=== PATIENT | male | born 1955 | race Caucasian/White ===

== ENCOUNTER 2017-07-19 14:27 | Emergency (ER) | payer OTHER ==
--- NOTE | 2017-07-19 14:31 | PDOC ---
Rapid Medical Evaluation Time Seen by Provider: 07/19/17 14:28 Medical Evaluation: Allergies Allergy/AdvReac Type Severity Reaction Status Date / Time No Known Allergies Allergy Verified 07/19/17 14:28 07/19/17 14:29 Pt presents to the ED: inability to urinate x 2 hrs, no blood , had a procedure by urologist, dr Marina ram 1 month. Had catheter placed before for the same Pt on brief exam: c/o suprapubic pressure, vss Pt ordered for: ua, ucx, cbc, comp, #14 sharpe cath placed in triage Pt to proceed to the Emergency Dept Discharge Disposition - Diagnosis Inability to urinate - Referrals - Patient Instructions - Post Discharge Activity
[2017-07-19 14:32] VITALS: BP 159/91; PULSE 81; TEMP 98.6; BMI 31.3
[2017-07-19 15:33] LABS: BASO # 0.1 # (0.1-1); BASO % 1.1 % (0-2.0); EOS # 0.3 # (0-4.5); EOS % 4.6 % (0-4.5); LYMPH # 1.5 (8-40); MCH 26.7 pg (25.7-33.7); MCHC 32.8 g/dl (32.0-35.9); MEAN CELL VOLUME 81.4 fl (80-96); MEAN PLT VOLUME 9.4 fl (7.5-11.1); MONO # 0.5 # (3.8-10.2); NEUT # 3.2 # (42.8-82.8); NEUT % 58.1 % (42.8-82.8); PLATELET COUNT 248 K/MM3 (134-434); RDW 13.9 % (11.9-15.9); WHITE BLOOD COUNT 5.5 K/mm3 (4.0-10.0)
[2017-07-19 15:37] LABS: URINE APPEARANCE SLCLOUDY; URINE BILIRUBIN NEGATIVE (NEGATIVE); URINE BLOOD 3+ (NEGATIVE); URINE COLOR LTYELLOW; URINE GLUCOSE (UA) NEGATIVE (NEGATIVE); URINE KETONE NEGATIVE (NEGATIVE); URINE NITRITE NEGATIVE (NEGATIVE); URINE PROTEIN NEGATIVE (NEGATIVE); URINE UROBILINOGEN NEGATIVE mg/dL (0.2-1.0)
[2017-07-19 15:44] LABS: URINE LEUK ESTERASE 3+ (NEGATIVE)
[2017-07-19 15:55] LABS: ALBUMIN 3.7 g/dl (3.4-5.0); ALK PHOS 52 U/L (45-117); ANION GAP 11 (8-16); BILIRUBIN,TOTAL 0.2 mg/dL (0.2-1.0); CALCIUM 9.2 mg/dL (8.5-10.1); CO2 24 mmol/L (21-32); CREATININE 1.2 mg/dL (0.7-1.3); GLUCOSE,RANDOM 87 mg/dL (74-106); SGOT/AST 32 U/L (15-37); SGPT/ALT 48 U/L (12-78); TOT PROT 7.1 g/dl (6.4-8.2)
[2017-07-19 16:00] LABS: URINE BACTERIA RARE /hpf (NONE SEEN); URINE MUCUS RARE; URINE RBC 42 /hpf (0-3); URINE WBC 127 /hpf (3-5)
--- NOTE | 2017-07-19 16:33 | PDOC ---
History of Present Illness - General History Source: Patient Exam Limitations: No Limitations - History of Present Illness Initial Comments: 07/19/17 16:50 The patient is a 62 year old male with a significant PMH of HTN and HLD who presents to the emergency department with inability to urinate since 12PM today. The patient states he had a procedure done for an enlarged prostate and urinary frequency by Dr. Rojas 1 month ago. The patient had no urinary complaints until today when he was unable to urinate since 12PM today. The patient reported suprapubic pain in triage secondary to his urinary retention that has since resolved after shapre catheter placement. The patient denies hematuria. The patient denies headache, dizziness, fever, chills, nausea, and vomit. Allergies: NKA Past surgical history: None reported. Social history: No reported alcohol, drug, or cigarette use. PCP: Dr. Falcon <Radha Lovell - Last Filed: 07/19/17 16:50> <Karina Puente - Last Filed: 07/20/17 16:30> - General Chief Complaint: Urinary Problem Stated Complaint: retention / URINARY PROBLEM Time Seen by Provider: 07/19/17 14:28 Past History <Radha Lovell - Last Filed: 07/19/17 16:50> - Past Medical History COPD: No HTN: Yes Hypercholesterolemia: Yes Kidney Stones: Yes - Surgical History Orthopedic Surgery: Yes (r knee) - Immunization History Immunization Up to Date: Yes - Suicide/Smoking/Psychosocial Hx Smoking Status: Yes Smoking History: Never smoked Have you smoked in the past 12 months: No Number of Cigarettes Smoked Daily: 0 If you are a former smoker, when did you quit?: 20 yrs ago Information on smoking cessation initiated: No Hx Alcohol Use: No Drug/Substance Use Hx: No Substance Use Type: None Hx Substance Use Treatment: No <Karina Puente - Last Filed: 07/20/17 16:30> - Past Medical History Allergies/Adverse Reactions: Allergies Allergy/AdvReac Type Severity Reaction Status Date / Time No Known Allergies Allergy Verified 07/19/17 14:28 Home Medications: Ambulatory Orders Lisinopril [Prinivil] 20 mg PO DAILY 03/25/13 Simvastatin [Zocor -] 40 mg PO HS 03/25/13 Atenolol [Tenormin -] 50 mg PO ASDIR 04/11/16 Fenofibrate [Fenoglide] 134 mg PO DAILY 11/03/15 Aspirin [ASA -] 81 mg PO DAILY 07/19/17 Cephalexin Monohydrate [Keflex -] 500 mg PO BID #14 capsule 07/19/17 Levofloxacin [Levaquin] 500 mg PO DAILY 07/19/17 Nortriptyline HCl [Pamelor -] 50 mg PO HS PRN 07/19/17 Pantoprazole Sodium [Protonix] 40 mg PO DAILY 07/19/17 Potassium Chloride [Klor-Con M15] 15 meq PO DAILY 07/19/17 Review of Systems - Review of Systems Able to Perform ROS?: Yes Comments:: 07/19/17 16:53 GENERAL/CONSTITUTIONAL: No fever or chills. No weakness. HEAD, EYES, EARS, NOSE AND THROAT: No change in vision. No ear pain or discharge. No sore throat. CARDIOVASCULAR: No chest pain or shortness of breath. RESPIRATORY: No cough, wheezing, or hemoptysis. GASTROINTESTINAL: No nausea, vomiting, diarrhea or constipation. GENITOURINARY: (+) Urinary retention. (+) Suprapubic pain. MUSCULOSKELETAL: No joint or muscle swelling or pain. No neck or back pain. SKIN: No rash NEUROLOGIC: No headache, vertigo, loss of consciousness, or change in strength/ sensation. ENDOCRINE: No increased thirst. No abnormal weight change. HEMATOLOGIC/LYMPHATIC: No anemia, easy bleeding, or history of blood clots. ALLERGIC/IMMUNOLOGIC: No hives or skin allergy. <Radha Lovell - Last Filed: 07/19/17 16:50> *Physical Exam - Vital Signs Last Vital Signs Temp Pulse Resp BP Pulse Ox 98.6 F 81 18 159/91 100 07/19/17 14:29 07/19/17 14:29 07/19/17 14:29 07/19/17 14:29 07/19/17 14:29 <Radha Lovell - Last Filed: 07/19/17 16:50> - Vital Signs Last Vital Signs Temp Pulse Resp BP Pulse Ox 98.6 F 81 18 159/91 100 07/19/17 14:29 07/19/17 14:29 07/19/17 14:29 07/19/17 14:29 07/19/17 14:29 - Physical Exam Comments: GENERAL: Awake, alert, and fully oriented, in no acute distress HEAD: No signs of trauma EYES: PERRLA, EOMI, sclera anicteric, conjunctiva clear ENT: Auricles normal inspection, hearing grossly normal, nares patent, oropharynx clear without exudates. Moist mucosa NECK: Normal ROM, supple, no lymphadenopathy, JVD, or masses LUNGS: Breath sounds equal, clear to auscultation bilaterally. No wheezes, and no crackles HEART: Regular rate and rhythm, normal S1 and S2, no murmurs, rubs or gallops ABDOMEN: Soft, nontender, normoactive bowel sounds. No guarding, no rebound. No masses EXTREMITIES: Normal range of motion, no edema. No clubbing or cyanosis. No cords, erythema, or tenderness NEUROLOGICAL: Cranial nerves II through XII grossly intact. Normal speech, normal gait SKIN: Warm, Dry, normal turgor, no rashes or lesions noted. : Sharpe in place (placed in triage), draining clear straw-colored urine. <Karina Puente - Last Filed: 07/20/17 16:30> ED Treatment Course - LABORATORY CBC & Chemistry Diagram: 07/19/17 15:15 07/19/17 15:15 - ADDITIONAL ORDERS Additional order review: Laboratory Results 07/19/17 07/19/17 15:15 15:15 Sodium 141 Potassium 4.1 Chloride 106 Carbon Dioxide 24 Anion Gap 11 BUN 28 H D Creatinine 1.2 Creat Clearance w eGFR > 60 Random Glucose 87 D Calcium 9.2 Total Bilirubin 0.2 D AST 32 ALT 48 Alkaline Phosphatase 52 D Total Protein 7.1 Albumin 3.7 Urine Color Ltyellow Urine Appearance Slcloudy Urine pH 6.0 D Ur Specific [place] 1.008 Urine Protein Negative Urine Glucose (UA) Negative Urine Ketones Negative Urine Blood 3+ H Urine Nitrite Negative Urine Bilirubin Negative Urine Urobilinogen Negative Urine WBC (Auto) 127 Urine RBC (Auto) 42 Urine Bacteria Rare Urine Mucus Rare 07/19/17 15:15 RBC 4.98 MCV 81.4 MCHC 32.8 RDW 13.9 MPV 9.4 Neutrophils % 58.1 Lymphocytes % 27.2 Monocytes % 9.0 Eosinophils % 4.6 H Basophils % 1.1 <Radha Lovell - Last Filed: 07/19/17 16:50> - LABORATORY CBC & Chemistry Diagram: 07/19/17 15:15 07/19/17 15:15 - ADDITIONAL ORDERS Additional order review: Laboratory Results 07/19/17 07/19/17 15:15 15:15 Sodium 141 Potassium 4.1 Chloride 106 Carbon Dioxide 24 Anion Gap 11 BUN 28 H D Creatinine 1.2 Creat Clearance w eGFR > 60 Random Glucose 87 D Calcium 9.2 Total Bilirubin 0.2 D AST 32 ALT 48 Alkaline Phosphatase 52 D Total Protein 7.1 Albumin 3.7 Urine Color Ltyellow Urine Appearance Slcloudy Urine pH 6.0 D Ur Specific [place] 1.008 Urine Protein Negative Urine Glucose (UA) Negative Urine Ketones Negative Urine Blood 3+ H Urine Nitrite Negative Urine Bilirubin Negative Urine Urobilinogen Negative Urine WBC (Auto) 127 Urine RBC (Auto) 42 Urine Bacteria Rare Urine Mucus Rare 07/19/17 15:15 RBC 4.98 MCV 81.4 MCHC 32.8 RDW 13.9 MPV 9.4 Neutrophils % 58.1 Lymphocytes % 27.2 Monocytes % 9.0 Eosinophils % 4.6 H Basophils % 1.1 <Karina Puente - Last Filed: 07/20/17 16:30> Medical Decision Making - Medical Decision Making 07/19/17 19:[address] Vallejo. Initially presented with urinary retention, relieved by sharpe placement in triage. However, subsequent to this, he later complained of L testicular pain. Testicle with normal lie, no erythema, no induration, no skin changes. Ultrasound pending. Will DC home pending ultrasound findings. Pt initially written for abx based on urinalysis, but it was cancelled after he stated he was on levaquin at home. <Karina Puente - Last Filed: 07/20/17 16:30> *DC/Admit/Observation/Transfer <Radha Lovell - Last Filed: 07/19/17 16:50> - Discharge Dispostion Admit: No <Karina Puente - Last Filed: 07/20/17 16:30> Diagnosis at time of Disposition: Inability to urinate, Urinary retention - Discharge Dispostion Disposition: HOME Condition at time of disposition: Stable - Prescriptions Prescriptions: Cephalexin Monohydrate [Keflex -] 500 mg PO BID #14 capsule - Referrals Referrals: Rush Rojas MD [Staff Physician] - - Patient Instructions Printed Discharge Instructions: DI for Varicocele, DI for Urinary Retention in Men - Post Discharge Activity
[2017-07-19 18:27] LABS: URINE LEUK ESTERASE 2+ (NEGATIVE)
[2017-07-19] MEDS ORDERED: CEPHALEXIN MONOHYDRATE 500 MG CAPSULE (UD) PO ONE (19:08)
--- NOTE | 2017-07-19 19:36 | PDOC ---
*Physical Exam - Vital Signs Last Vital Signs Temp Pulse Resp BP Pulse Ox 98.6 F 81 18 159/91 100 07/19/17 14:29 07/19/17 14:29 07/19/17 14:29 07/19/17 14:29 07/19/17 14:29 ED Treatment Course - LABORATORY CBC & Chemistry Diagram: 07/19/17 15:15 07/19/17 15:15 - ADDITIONAL ORDERS Additional order review: Laboratory Results 07/19/17 07/19/17 15:15 15:15 Sodium 141 Potassium 4.1 Chloride 106 Carbon Dioxide 24 Anion Gap 11 BUN 28 H D Creatinine 1.2 Creat Clearance w eGFR > 60 Random Glucose 87 D Calcium 9.2 Total Bilirubin 0.2 D AST 32 ALT 48 Alkaline Phosphatase 52 D Total Protein 7.1 Albumin 3.7 Urine Color Ltyellow Urine Appearance Slcloudy Urine pH 6.0 D Ur Specific [place] 1.008 Urine Protein Negative Urine Glucose (UA) Negative Urine Ketones Negative Urine Blood 3+ H Urine Nitrite Negative Urine Bilirubin Negative Urine Urobilinogen Negative Ur Leukocyte Esterase 2+ H Urine WBC (Auto) 127 Urine RBC (Auto) 42 Urine Bacteria Rare Urine Mucus Rare 07/19/17 15:15 RBC 4.98 MCV 81.4 MCHC 32.8 RDW 13.9 MPV 9.4 Neutrophils % 58.1 Lymphocytes % 27.2 Monocytes % 9.0 Eosinophils % 4.6 H Basophils % 1.1 - Medications Given in the ED: ED Medications Discontinued Medications Generic Name Dose Route Start Last Admin Trade Name Alvinq PRN Reason Stop Dose Admin Cephalexin HCl 500 mg 07/19/17 19:08 07/19/17 19:22 Keflex - PO 07/19/17 19:09 Not Given ONCE ONE *DC/Admit/Observation/Transfer Diagnosis at time of Disposition: Inability to urinate, Urinary retention - Discharge Dispostion Disposition: HOME Condition at time of disposition: Stable Admit: No - Prescriptions Prescriptions: Cephalexin Monohydrate [Keflex -] 500 mg PO BID #14 capsule - Referrals Referrals: Rush Rojas MD [Staff Physician] - - Patient Instructions Printed Discharge Instructions: DI for Varicocele, DI for Urinary Retention in Men - Post Discharge Activity
== END 2017-07-19 19:41 | disposition home or self-care (01) ==
LOC: JER 14:27
PROC: 0T9B70Z Drainage of Bladder with Drainage Device, Via Natural or Artificial Opening (ICD-10-PCS; principal; 2017-07-19)
DX: N40.0 Benign prostatic hyperplasia without lower urinary tract symptoms (principal); R33.8 Other retention of urine; I10 Essential (primary) hypertension; E78.00 Pure hypercholesterolemia, unspecified
CPT/HCPCS: 36415; 76870-TC; 80053; 81003; 81015; 85025; 87086; 99281-25

== ENCOUNTER 2017-08-12 18:22 | Inpatient (IN) | payer OTHER ==
--- NOTE | 2017-08-12 20:08 | PDOC ---
History of Present Illness - History of Present Illness Initial Comments: 08/12/17 20:51 The patient is a 62 year old male with a significant PMH of HTN, HLD, kidney stones, urinary retention, enlarged prostate, sharpe catheter, who presents to the emergency department with inability to urinate since yesterday. Previous notes reports that patient had a procedure done recently for an enlarged prostate and urinary frequency by Dr. Rojas. Patient states that he went to [facility] yesterday because he was unable to urinate. Patient states that he went to Dr. Rojas's office and was given a shot of Toradol at 2pm. Patient also reports left CVA tenderness, lower left suprapubic pain. He reports a swollen left scrotum, and is currently profusely diaphoretic. The patient denies hematuria. The patient denies headache, dizziness, chills, nausea, and vomit. Allergies: NKA Past surgical history: None reported. Social history: No reported alcohol, drug, or cigarette use. PCP: Dr. Falcon <Amber Shaikh - Last Filed: 08/12/17 21:40> <Tracee Wyatt - Last Filed: 08/13/17 02:46> - General Chief Complaint: Pain, Acute Stated Complaint: PAIN Time Seen by Provider: 08/12/17 20:08 Past History <Amber Shaikh - Last Filed: 08/12/17 21:40> - Past Medical History COPD: No HTN: Yes Hypercholesterolemia: Yes Kidney Stones: Yes - Surgical History Orthopedic Surgery: Yes (r knee) - Immunization History Immunization Up to Date: Yes - Suicide/Smoking/Psychosocial Hx Smoking Status: Yes Smoking History: Never smoked Have you smoked in the past 12 months: No Number of Cigarettes Smoked Daily: 0 If you are a former smoker, when did you quit?: 20 yrs ago Information on smoking cessation initiated: No Hx Alcohol Use: No Drug/Substance Use Hx: No Substance Use Type: None Hx Substance Use Treatment: No <Tracee Wyatt - Last Filed: 08/13/17 02:46> - Past Medical History Allergies/Adverse Reactions: Allergies Allergy/AdvReac Type Severity Reaction Status Date / Time No Known Allergies Allergy Verified 08/12/17 19:01 Home Medications: Ambulatory Orders Lisinopril [Prinivil] 20 mg PO DAILY 03/25/13 Simvastatin [Zocor -] 40 mg PO HS 03/25/13 Atenolol [Tenormin -] 50 mg PO ASDIR 11/03/15 Fenofibrate [Fenoglide] 134 mg PO DAILY 11/03/15 Aspirin [ASA -] 81 mg PO DAILY 07/19/17 Nortriptyline HCl [Pamelor -] 50 mg PO HS PRN 07/19/17 Pantoprazole Sodium [Protonix] 40 mg PO DAILY 07/19/17 Potassium Chloride [Klor-Con M15] 15 meq PO DAILY 07/19/17 Meloxicam [Mobic (Nf) -] 0 mg PO ASDIR 08/12/17 Sulfamethoxazole/Trimethoprim [Bactrim Ds Tablet] 1 each PO BID 08/12/17 Review of Systems - Review of Systems Comments:: 08/12/17 20:59 GENERAL/CONSTITUTIONAL: +slight fever. No chills. No weakness. HEAD, EYES, EARS, NOSE AND THROAT: No change in vision. No ear pain or discharge. No sore throat. CARDIOVASCULAR: No chest pain or shortness of breath. RESPIRATORY: No cough, wheezing, or hemoptysis. GASTROINTESTINAL: No nausea, vomiting, diarrhea or constipation. GENITOURINARY: +urinary retention. MUSCULOSKELETAL: +left CVA tenderness. +left suprapubic pain. No neck pain. SKIN: No rash NEUROLOGIC: No headache, vertigo, loss of consciousness, or change in strength/ sensation. ENDOCRINE: No increased thirst. No abnormal weight change. HEMATOLOGIC/LYMPHATIC: No anemia, easy bleeding, or history of blood clots. ALLERGIC/IMMUNOLOGIC: No hives or skin allergy. <Amber Shaikh - Last Filed: 08/12/17 21:40> *Physical Exam - Vital Signs Last Vital Signs Temp Pulse Resp BP Pulse Ox 99.4 F 95 H 20 123/61 100 08/12/17 19:47 08/12/17 19:01 08/12/17 19:01 08/12/17 19:01 08/12/17 19:01 - Physical Exam Comments: 08/12/17 21:40 GENERAL: Awake, alert, and fully oriented. Profusely diaphoretic. HEAD: No signs of trauma EYES: PERRLA, EOMI, sclera anicteric, conjunctiva clear ENT: Auricles normal inspection, hearing grossly normal, nares patent, oropharynx clear without exudates. Moist mucosa NECK: Normal ROM, supple, no lymphadenopathy, JVD, or masses LUNGS: Breath sounds equal, clear to auscultation bilaterally. No wheezes, and no crackles HEART: Regular rate and rhythm, normal S1 and S2, no murmurs, rubs or gallops ABDOMEN: Soft,left lower abdominal pain. Left flank pain, pain upon percussion. No guarding, no rebound. No masses : Sharpe-catheter -> clean, dry. Swollen left testicle. EXTREMITIES: Normal range of motion, no edema. No clubbing or cyanosis. No cords, erythema, or tenderness NEUROLOGICAL: Cranial nerves II through XII grossly intact. Normal speech, normal gait SKIN: Warm, Dry, normal turgor, no rashes or lesions noted. <Amber Shaikh - Last Filed: 08/12/17 21:40> - Vital Signs Last Vital Signs Temp Pulse Resp BP Pulse Ox 99.4 F 95 H 20 123/61 100 08/12/17 19:47 08/12/17 19:01 08/12/17 19:01 08/12/17 19:01 08/12/17 19:01 <Tracee Wyatt - Last Filed: 08/13/17 02:46> ED Treatment Course - LABORATORY CBC & Chemistry Diagram: 08/12/17 21:00 08/12/17 21:00 <Amber Shaikh - Last Filed: 08/12/17 21:40> - LABORATORY CBC & Chemistry Diagram: 08/12/17 21:00 08/12/17 21:00 <Tracee Wyatt - Last Filed: 08/13/17 02:46> Medical Decision Making - Medical Decision Making 08/12/17 21:34 Pt comes with sweats fever; urinary cath in place. He has left flank pain and he has left testicle swelling. WBC is elevated. UA shows 3+ blood and 3+ leukocytes. Pt was sent for sono, and he will be sent for spiral CT to r/o kidney stone and he was given a prophylactic dose of zosyn and doxycycline. He had no antipyretics in the ER so we gave a dose of ofirmev. 08/12/17 23:[address] Tyler Falcon, who admits to Edgar Templeton, who admits to the hospitalist team. <Tracee Wyatt - Last Filed: 08/13/17 02:46> *DC/Admit/Observation/Transfer - Attestations Scribe Attestion: 08/12/17 21:41 Documentation prepared by Amber Shaikh, acting as medical claims specialist for Tracee Wyatt MD. <Amber Shaikh - Last Filed: 08/12/17 21:40> - Discharge Dispostion Admit: Yes <Tracee Wyatt - Last Filed: 08/13/17 02:46> Diagnosis at time of Disposition: Kidney stone, Inability to urinate, Pyelonephritis, History of hydrocele, Infected hydrocele - Discharge Dispostion Condition at time of disposition: Guarded - Referrals Referrals: Samantha Falcon MD [Primary Care Provider] -
[2017-08-12] MEDS ORDERED: ACETAMINOPHEN 1000 MG/100 ML VIAL (NON FORMULARY) IVPB ONE (20:42)
[2017-08-12] MEDS ORDERED: PIPERACILLIN/TAZOB 3.375 GM 50 ML IVPB ONE (20:42)
[2017-08-12] MEDS ORDERED: DOXYCYCLINE INJECTION 100 MG in DEXTROSE 5%-WATER - 150 ML IVPB ONE (20:44)
[2017-08-12] MEDS ORDERED: ACETAMINOPHEN INJECTION 100 ML IVPB ONE (20:57)
[2017-08-12] MEDS ORDERED: PIPERACILLIN/TAZOB 3.375 GM 3.375 GM/50 ML BAG IVPB ONE (20:57)
[2017-08-12 21:16] LABS: HEMATOCRIT 36.9 % (35.4-49); HEMOGLOBIN 12.4 GM/dL (11.7-16.9); MCH 26.9 pg (25.7-33.7); MCHC 33.5 g/dl (32.0-35.9); MEAN CELL VOLUME 80.5 fl (80-96); MEAN PLT VOLUME 9.1 fl (7.5-11.1); PLATELET COUNT 205 K/MM3 (134-434); RBC 4.59 M/mm3 (4.00-5.60); RDW 14.5 % (11.9-15.9); WHITE BLOOD COUNT 12.1 K/mm3 (4.0-10.0)
[2017-08-12] MEDS ORDERED: DOXYCYCLINE HYCLATE 100 MG VIAL ONE (21:25)
[2017-08-12 21:26] LABS: URINE APPEARANCE SLCLOUDY; URINE BILIRUBIN NEGATIVE (NEGATIVE); URINE BLOOD 3+ (NEGATIVE); URINE COLOR YELLOW; URINE GLUCOSE (UA) NEGATIVE (NEGATIVE); URINE KETONE NEGATIVE (NEGATIVE); URINE NITRITE NEGATIVE (NEGATIVE); URINE UROBILINOGEN NEGATIVE mg/dL (0.2-1.0)
[2017-08-12 21:27] LABS: URINE LEUK ESTERASE 3+ (NEGATIVE); URINE PROTEIN 2+ (NEGATIVE)
[2017-08-12 21:56] LABS: INR 1.19 (0.82-1.09); PROTHROMBIN TIME (PATIENT) 13.4 SEC (9.98-11.88)
[2017-08-12 21:57] LABS: ALBUMIN 3.6 g/dl (3.4-5.0); ANION GAP 11 (8-16); BLOOD UREA NITROGEN 27 mg/dL (7-18); CHLORIDE 99 mmol/L (98-107); CO2 22 mmol/L (21-32); CREATININE 1.4 mg/dL (0.7-1.3); GLUCOSE,RANDOM 92 mg/dL (74-106); POTASSIUM 4.1 mmol/L (3.5-5.1); SGOT/AST 34 U/L (15-37); SGPT/ALT 45 U/L (12-78); SODIUM 132 mmol/L (136-145)
[2017-08-12 21:58] LABS: ACTIVATED PTT 28.5 SECONDS (26.9-34.4)
[2017-08-12 21:59] LABS: ALK PHOS 40 U/L (45-117); BILIRUBIN,TOTAL 0.7 mg/dL (0.2-1.0); TOT PROT 6.7 g/dl (6.4-8.2)
[2017-08-12 22:06] LABS: PLATELET ESTIMATE ADEQUATE
[2017-08-12 22:30] LABS: URINE HYALINE CAST 2 /lpf; URINE MUCUS RARE
[2017-08-12] MEDS: SODIUM CHLORIDE 0.9% 1000 ML INFUS.BAG IV PRN (23:29)
--- NOTE | 2017-08-13 00:43 | HP ---
CHIEF COMPLAINT: Flank Pain, Chills PCP: Dr. Samantha Falcon HISTORY OF PRESENT ILLNESS: This is a 62 y/o male with a past medical history of HTN, HLD, Kidney Stones. Who presents to the ED with spouse for flank pain and chills. Per ED record, patient was seen at [facility] for Urinary Retention- placed Ohara Catheter w/leg bag. He reports following up with Dr. Rush Rojas in the office yesterday, and was given Toradol for pain. The patient reports having pain to his L-flank with chills and subjective fevers. Patient denies cough, SOB, CP, N/ V/D, constipation. ER course was notable for: (1) SIRS Criteria MET III- T Max 99.5~ 100.6, WBC 12.1, BUN 27 (2) CTAP- neg hydronephrosis, non-obstructing renal calculi, bilateral renal cortical scarring (3) US- small moderate left hydrocele Recent Travel: None PAST MEDICAL HISTORY: See HPI PAST SURGICAL HISTORY: Social History: Smoking: Never Alcohol: None Drugs: None Family History: Allergies No Known Allergies Allergy (Verified 08/12/17 19:01) HOME MEDICATIONS: Home Medications Medication Instructions Recorded Lisinopril [Prinivil] 20 mg PO DAILY 03/25/13 Simvastatin [Zocor -] 40 mg PO HS 03/25/13 Atenolol [Tenormin -] 50 mg PO ASDIR 11/03/15 Fenofibrate [Fenoglide] 134 mg PO DAILY 11/03/15 Aspirin [ASA -] 81 mg PO DAILY 07/19/17 Nortriptyline HCl [Pamelor -] 50 mg PO HS PRN 07/19/17 Pantoprazole Sodium [Protonix] 40 mg PO DAILY 07/19/17 Potassium Chloride [Klor-Con M15] 15 meq PO DAILY 07/19/17 Meloxicam [Mobic (Nf) -] 0 mg PO ASDIR 08/12/17 Sulfamethoxazole/Trimethoprim 1 each PO BID 08/12/17 [Bactrim Ds Tablet] REVIEW OF SYSTEMS CONSTITUTIONAL: chills, Absent: fever, diaphoresis, generalized weakness, malaise, loss of appetite, weight change HEENT: Absent: rhinorrhea, nasal congestion, throat pain, throat swelling, difficulty swallowing, mouth swelling, ear pain, eye pain, visual changes CARDIOVASCULAR: Absent: chest pain, syncope, palpitations, irregular heart rate, lightheadedness , peripheral edema RESPIRATORY: Absent: cough, shortness of breath, dyspnea with exertion, orthopnea, wheezing, stridor, hemoptysis GASTROINTESTINAL: abdominal pain, Absent: abdominal distension, nausea, vomiting, diarrhea, constipation, melena, hematochezia GENITOURINARY: flank pain, left scrotal swelling/tenderness Absent: dysuria, frequency, urgency, hesitancy, hematuria, genital pain MUSCULOSKELETAL: Absent: myalgia, arthralgia, joint swelling, back pain, neck pain SKIN: Absent: rash, itching, pallor HEMATOLOGIC/IMMUNOLOGIC: Absent: easy bleeding, easy bruising, lymphadenopathy, frequent infections ENDOCRINE: Absent: unexplained weight gain, unexplained weight loss, heat intolerance, cold intolerance NEUROLOGIC: Absent: headache, focal weakness or paresthesias, dizziness, unsteady gait, seizure, mental status changes, bladder or bowel incontinence PSYCHIATRIC: Absent: anxiety, depression, suicidal or homicidal ideation, hallucinations. PHYSICAL EXAMINATION Vital Signs - 24 hr 08/12/17 08/12/17 08/12/17 19:01 19:47 22:20 Temperature 99.5 F 99.4 F 100.6 F H Pulse Rate 95 H Pulse Rate [ 83 Apical] Respiratory 20 16 Rate Blood Pressure 123/61 Blood Pressure 96/61 [Right Arm] O2 Sat by Pulse 100 96 Oximetry (%) 08/12/17 23:01 Temperature 98.7 F Pulse Rate Pulse Rate [ 83 Apical] Respiratory 18 Rate Blood Pressure Blood Pressure 97/53 [Right Arm] O2 Sat by Pulse 99 Oximetry (%) GENERAL: Awake, alert, and fully oriented, in no acute distress. HEAD: Normal with no signs of trauma. EYES: Pupils equal, round and reactive to light, extraocular movements intact, sclera anicteric, conjunctiva clear. No lid lag. EARS, NOSE, THROAT: Ears normal, nares patent, oropharynx clear without exudates. Dry mucous membranes. NECK: Normal range of motion, supple without lymphadenopathy, JVD, or masses. LUNGS: Breath sounds equal, clear to auscultation bilaterally. No wheezes, and no crackles. No accessory muscle use. HEART: Regular rate and rhythm, normal S1 and S2 without murmur, rub or gallop. ABDOMEN: Soft, LMQ/LLQ tenderness, not distended, normoactive bowel sounds, no guarding, no rebound, no masses. No hepatomegaly or splenomegaly. GENITOURINARY: Left scrotum grossly edematous, pain/tenderness to palpation MUSCULOSKELETAL: Normal range of motion at all joints. No bony deformities or tenderness. L-CVA tenderness. UPPER EXTREMITIES: 2+ pulses, warm, well-perfused. No cyanosis. No clubbing. No peripheral edema. LOWER EXTREMITIES: 2+ pulses, warm, well-perfused. No calf tenderness. No peripheral edema. NEUROLOGICAL: Cranial nerves II-XII intact. Normal speech. Gait not observed. PSYCHIATRIC: Cooperative. Good eye contact. Appropriate mood and affect. SKIN: Warm, dry, normal turgor, no rashes or lesions noted, normal capillary refill. Laboratory Results - last 24 hr 08/12/17 08/12/17 08/12/17 21:00 21:00 21:00 WBC 12.1 H D RBC 4.59 Hgb 12.4 Hct 36.9 MCV 80.5 MCH 26.9 MCHC 33.5 RDW 14.5 Plt Count 205 MPV 9.1 Total Counted 100 Neutrophils % No Result Required. Neutrophils % (Manual) 83.0 H Band Neutrophils % 2.0 Lymphocytes % No Result Required. Lymphocytes % (Manual) 9.0 Monocytes % (Manual) 4 Eosinophils % (Manual) 1.0 Basophils % (Manual) 1.0 Platelet Estimate Adequate PT with INR INR PTT (Actin FS) Sodium 132 L Potassium 4.1 Chloride 99 Carbon Dioxide 22 Anion Gap 11 BUN 27 H Creatinine 1.4 H Creat Clearance w eGFR 51.69 Random Glucose 92 Lactic Acid 1.2 Calcium 8.0 L Total Bilirubin 0.7 D AST 34 ALT 45 Alkaline Phosphatase 40 L D Total Protein 6.7 Albumin 3.6 Urine Color Urine Appearance Urine pH Ur Specific [place] Urine Protein Urine Glucose (UA) Urine Ketones Urine Blood Urine Nitrite Urine Bilirubin Urine Urobilinogen Ur Leukocyte Esterase Urine WBC (Auto) Urine RBC (Auto) Hyaline Casts Urine Mucus Blood Type Antibody Screen 08/12/17 08/12/17 08/12/17 21:05 21:06 21:06 WBC RBC Hgb Hct MCV MCH MCHC RDW Plt Count MPV Total Counted Neutrophils % Neutrophils % (Manual) Band Neutrophils % Lymphocytes % Lymphocytes % (Manual) Monocytes % (Manual) Eosinophils % (Manual) Basophils % (Manual) Platelet Estimate PT with INR 13.40 H INR 1.19 H PTT (Actin FS) 28.5 Sodium Potassium Chloride Carbon Dioxide Anion Gap BUN Creatinine Creat Clearance w eGFR Random Glucose Lactic Acid Calcium Total Bilirubin AST ALT Alkaline Phosphatase Total Protein Albumin Urine Color Yellow Urine Appearance Slcloudy Urine pH 6.0 Ur Specific [place] 1.015 Urine Protein 2+ H Urine Glucose (UA) Negative Urine Ketones Negative Urine Blood 3+ H Urine Nitrite Negative Urine Bilirubin Negative Urine Urobilinogen Negative Ur Leukocyte Esterase 3+ H Urine WBC (Auto) 57 Urine RBC (Auto) 270 Hyaline Casts 2 Urine Mucus Rare Blood Type O POSITIVE Antibody Screen Negative ASSESSMENT/PLAN: This is a 62 y/o man with a PMHx of: HTN, HLD, Renal Calculi. Admitted for Pyelonephritis, Epididymitis. Plan: 1. Pyelonephritis- IVF, Blood Cultures-pending, Continue Zosyn. Appreciate ID Consult. Appreciate Nephrology Consult. Monitor CBC, Monitor vitals, CTAP- reviewed 2. Epididymitis- US-reviewed, Blood cultures, Urine culture-pending, UA- reviewed, Continue Doxycycline, Appreciate ID Consult, supportive care, Monitor BMP, CBC, Monitor vitals 3. Urinary Retention- Ohara Care, maintain INOs 4. Hypertension- Currently hypotensive, will hold meds, 2/2 ALEYDA, NS Bolus prn, maintain MAP > 65 5. Hyperlipidemia- Continue Zocor, monitor LFTs 6. F/E/N- NS@42cc/hr, Replete lytes prn, NPO 7. DVT Prophylaxis- OOB, SCDs, Heparin SQ Code Status: Full Code Dispo: Full Code Problem List - Problem (1) Inability to urinate Code(s): R33.9 - RETENTION OF URINE, UNSPECIFIED (2) Pyelonephritis Code(s): N12 - TUBULO-INTERSTITIAL NEPHRITIS, NOT SPCF ACUTE OR CHRONIC (3) Kidney stone Code(s): N20.0 - CALCULUS OF KIDNEY (4) Infected hydrocele Code(s): N43.1 - INFECTED HYDROCELE (5) HTN (hypertension) Code(s): I10 - ESSENTIAL (PRIMARY) HYPERTENSION (6) HLD (hyperlipidemia) Code(s): E78.5 - HYPERLIPIDEMIA, UNSPECIFIED (7) DVT prophylaxis Code(s): HSY1524 - Visit type - Emergency Visit Emergency Visit: Yes ED Registration Date: 08/12/17 Care time: The patient presented to the Emergency Department on the above date and was hospitalized for further evaluation of their emergent condition. - New Patient This patient is new to me today: Yes Date on this admission: 08/13/17 - Critical Care Critical Care patient: No
[2017-08-13] MEDS ORDERED: SODIUM CHLORIDE 0.9% 500 ML INFUS.BAG IV ONE (00:53)
[2017-08-13] MEDS ORDERED: morphine CARPU-JECT 2 MG/1 ML DISP.SYRIN IVPUSH ONE (03:11)
[2017-08-13] MEDS ORDERED: KETOROLAC TROMETHAMINE 30 MG/1 ML VIAL IVPUSH ONE (03:22)
[2017-08-13] MEDS ORDERED: KETOROLAC TROMETHAMINE 30 MG/1 ML VIAL ONE (03:29)
[2017-08-13] MEDS: SODIUM CHLORIDE 0.9% 1000 ML INFUS.BAG IV PRN ×2 (03:36→05:40)
[2017-08-13] MEDS ORDERED: PIPERACILLIN/TAZOB 3.375 GM 3.375 GM in DEXTROSE 5%-WATER - 100 ML IVPB ONE (05:00)
[2017-08-13 05:51] VITALS: BMI 31.6
[2017-08-13 09:02] LABS: BASO % 0.4 % (0-2.0); EOS % 0.8 % (0-4.5); HEMATOCRIT 31.4 % (35.4-49); HEMOGLOBIN 10.1 GM/dL (11.7-16.9); LYMPH % 9.6 % (8-40); MCH 26.2 pg (25.7-33.7); MCHC 32.2 g/dl (32.0-35.9); MEAN CELL VOLUME 81.4 fl (80-96); MEAN PLT VOLUME 9.3 fl (7.5-11.1); NEUT % 79.2 % (42.8-82.8); PLATELET COUNT 178 K/MM3 (134-434); RBC 3.87 M/mm3 (4.00-5.60); RDW 14.8 % (11.9-15.9); WHITE BLOOD COUNT 14.1 K/mm3 (4.0-10.0)
[2017-08-13] MEDS ORDERED: KETOROLAC TROMETHAMINE 30 MG/1 ML VIAL IVPUSH PRN (09:09)
[2017-08-13] MEDS ORDERED: PT OWN MED DRAWER 7, Y5N ONE (09:47)
[2017-08-13 09:56] LABS: ANION GAP 10 (8-16); BLOOD UREA NITROGEN 25 mg/dL (7-18); CALCIUM 7.4 mg/dL (8.5-10.1); CHLORIDE 106 mmol/L (98-107); CO2 23 mmol/L (21-32); CREATININE 1.2 mg/dL (0.7-1.3); GLUCOSE,RANDOM 87 mg/dL (74-106); POTASSIUM 3.8 mmol/L (3.5-5.1); SODIUM 139 mmol/L (136-145)
[2017-08-13] MEDS ORDERED: DOXYCYCLINE INJECTION 100 MG in DEXTROSE 5%-WATER - 100 ML IVPB SCH (10:00)
[2017-08-13] MEDS: PANTOPRAZOLE 40 MG TABLET (FP) PO SCH (10:03)
--- NOTE | 2017-08-13 10:29 | PN ---
Progress Note (short form) - Note Progress Note: pt seen earlier today by hospitalist chart reviewed pt of Dr. Falcon comfortable at bedside continue abx urology to follow will assume care will follow
--- NOTE | 2017-08-13 16:44 | CON.ID ---
Consult Consult Specialty:: infectious disease Referred by:: lydia Reason for Consultation:: fever - History of Present Illness Chief Complaint: left testicular pain History of Present Illness: developed acute urinary retention on night seen at [facility], sharpe placed, went to [place], Tuesday developed testicular pain on left went to urology given meds- ?pain meds, ?abx, felt better, went home, pain worsened came to ED +chills/fever sharpe changed in ED prior history of kidney stones, no history of UTI c/o pain radiating to left flank no vomiting - History Source History Provided By: Patient, Medical Record Limitations to Obtaining History: No Limitations - Past Medical History Cardio/Vascular: Yes: HTN, Hyperlipdemia Renal/: Yes: Renal Calculi - Past Surgical History Additional Surgical History: knee arthroscopy. prostate surgery 05/26 - Alcohol/Substance Use Hx Alcohol Use: No - Smoking History Smoking history: Never smoked Have you smoked in the past 12 months: No Aproximately how many cigarettes per day: 0 If you are a former smoker, when did you quit?: 20 yrs ago - Social History Usual Living Arrangement: With Spouse ADL: Independent Occupation: works in [employer] of : Other ([employer] [facility] [employer]) Came to [place]year[place] age 28 Home Medications - Allergies Allergies/Adverse Reactions: Allergies Allergy/AdvReac Type Severity Reaction Status Date / Time No Known Allergies Allergy Verified 08/12/17 19:01 - Home Medications Home Medications: Ambulatory Orders Lisinopril [Prinivil] 20 mg PO DAILY 03/25/13 Simvastatin [Zocor -] 40 mg PO HS 03/25/13 Atenolol [Tenormin -] 50 mg PO ASDIR 11/03/15 Fenofibrate [Fenoglide] 134 mg PO DAILY 11/03/15 Aspirin [ASA -] 81 mg PO DAILY 07/19/17 Nortriptyline HCl [Pamelor -] 50 mg PO HS PRN 07/19/17 Pantoprazole Sodium [Protonix] 40 mg PO DAILY 07/19/17 Potassium Chloride [Klor-Con M15] 15 meq PO DAILY 07/19/17 Meloxicam [Mobic (Nf) -] 0 mg PO ASDIR 08/12/17 Sulfamethoxazole/Trimethoprim [Bactrim Ds Tablet] 1 each PO BID 08/12/17 Family Disease History - Family Disease History Family History: Unremarkable Review of Systems - Review of Systems Constitutional: reports: Chills, Fever. denies: Loss of Appetite Eyes: reports: No Symptoms HENT: reports: No Symptoms Neck: reports: No Symptoms Cardiovascular: denies: Chest Pain Respiratory: denies: Cough Genitourinary: reports: Flank Pain, Testicular Pain, Testicular Swelling Physical Exam Vital Signs: Vital Signs Temperature 97.8 F 08/13/17 14:41 Pulse Rate 76 08/13/17 14:41 Respiratory Rate 18 08/13/17 14:41 Blood Pressure 99/54 08/13/17 14:41 O2 Sat by Pulse Oximetry (%) 99 08/13/17 09:00 Constitutional: Yes: Well Nourished, No Distress, Calm Eyes: Yes: Conjunctiva Clear, EOM Intact HENT: Yes: Atraumatic, Normocephalic Neck: Yes: Supple, Trachea Midline Cardiovascular: Yes: Regular Rate and Rhythm Respiratory: Yes: Regular, CTA Bilaterally Gastrointestinal: Yes: Normal Bowel Sounds, Soft ...Rectal Exam: Yes: Deferred Renal/: Yes: CVA Tenderness - Left, Other (left testicular swelling) Extremities: Yes: WNL Edema: No Psychiatric: Yes: Alert Labs: CBC, BMP 08/13/17 06:00 08/13/17 08:00 UA 57 wbc Imaging - Results Chest X-ray: Report Reviewed Ultrasound: Report Reviewed (small to moderate left hydrocele) Problem List - Problems (1) Infected hydrocele Code(s): N43.1 - INFECTED HYDROCELE (2) UTI (urinary tract infection) Code(s): N39.0 - URINARY TRACT INFECTION, SITE NOT SPECIFIED Assessment/Plan plan ceftriaxone for now, urology to see monogamous -no history of stds will d/c doxycycline
[2017-08-13] MEDS ORDERED: CEFTRIAXONE IN IS-OSM DEXTROSE 2 GM/50 ML BAG IVPB SCH (17:00)
[2017-08-13] MEDS ORDERED: cefTRIAXone 2 GM/100 ML BAG (PRE-DOCKED) IVPB SCH (17:00)
[2017-08-13] MEDS ORDERED: PIPERACILLIN/TAZOB 3.375 GM/50 ML PRE-DOCKED IVPB SCH (17:45)
[2017-08-13] MEDS ORDERED: PIPERACIL/TAZOB 3.375 GM 3.375 GM/50 ML PREMIX IVPB SCH (18:00)
[2017-08-13] MEDS: PIPERACILLIN/TAZOB 3.375 GM 3.375 GM in DEXTROSE 5%-WATER - 100 ML IVPB SCH ×2 (20:28→21:09)
[2017-08-13] MEDS: ACETAMINOPHEN 325 MG TABLET (FP) PO PRN (21:09)
[2017-08-13] MEDS: ATORVASTATIN CA 20 MG TABLET (FP) PO SCH (21:09)
[2017-08-13] MEDS ORDERED: NORTRIPTYLINE HCL 50 MG CAPSULE PO PRN (22:00)
[2017-08-14] MEDS: PIPERACILLIN/TAZOB 3.375 GM 3.375 GM in DEXTROSE 5%-WATER - 100 ML IVPB SCH ×2 (01:59→09:35)
[2017-08-14] MEDS ORDERED: NORTRIPTYLINE HCL 25 MG CAPSULE PO PRN (04:42)
[2017-08-14] MEDS ORDERED: PT OWN MED DRAWER 7, Y5N ONE (09:29)
[2017-08-14] MEDS: PANTOPRAZOLE 40 MG TABLET (FP) PO SCH (09:35)
--- NOTE | 2017-08-14 11:49 | PN ---
Progress Note (short form) - Note Progress Note: still with pain in his scrotum low grade fevers Vital Signs Period Temp Pulse Resp BP Sys/Jean-Baptiste Pulse Ox Last 24 Hr 97.8 F-99.7 F 65-84 18-20 99-132/54-72 99 cor-rrr lungs decreased bs at bases abd soft,nt ext no edema scrotal swelling unchanged sharpe in place CBC, BMP 08/13/17 06:00 08/13/17 08:00 Microbiology 08/12/17 21:00 Urine - Urine - Catheterized Urine Culture - Preliminary Group D Strep Or Entero Coccus 08/12/17 21:00 Blood - Peripheral Venous Blood Culture - Preliminary NO GROWTH OBTAINED AFTER 24 HOURS, INCUBATION TO CONTINUE FOR 4 DAYS. 08/12/17 21:00 Blood - Peripheral Venous Blood Culture - Preliminary NO GROWTH OBTAINED AFTER 24 HOURS, INCUBATION TO CONTINUE FOR 4 DAYS. a/p orchitis enterococcal uti switch to vancomycin urology consult Problem List - Problems (1) Infected hydrocele Code(s): N43.1 - INFECTED HYDROCELE (2) UTI (urinary tract infection) Code(s): N39.0 - URINARY TRACT INFECTION, SITE NOT SPECIFIED
--- NOTE | 2017-08-14 13:04 | PN ---
Progress Note, Physician History of Present Illness: pt seen/ examined c/c= pain - scrotum/ left groin +ve u/c- enterococcus i/d f/u noted/ appreciated agree with carloso. low grade temp. at bed side' - Current Medication List Current Medications: Active Medications Acetaminophen (Tylenol -) 650 mg PO Q6H PRN PRN Reason: PAIN Last Admin: 08/13/17 21:09 Dose: 650 mg Atorvastatin Calcium (Lipitor -) 20 mg PO HS HERNANDEZ Last Admin: 08/13/17 21:09 Dose: 20 mg Vancomycin HCl 1,250 mg/ (Dextrose) 250 mls @ 166.667 mls/hr IVPB BID HERNANDEZ PRN Reason: Protocol Ketorolac Tromethamine (Toradol Injection -) 30 mg IVPUSH Q8H-IV PRN PRN Reason: PAIN LEVEL 6-10 Stop: 08/18/17 09:59 Nortriptyline HCl (Pamelor -) 50 mg PO HS PRN PRN Reason: INSOMNIA Pantoprazole Sodium (Protonix -) 40 mg PO DAILY [facility] Last Admin: 08/14/17 09:35 Dose: 40 mg Sodium Chloride (Normal Saline -) 500 ml IV Q20M PRN PRN Reason: MAP<65mm Hg OR SBP <90 Last Admin: 08/13/17 05:40 Dose: 500 ml - Objective Vital Signs: Vital Signs Temperature 99.7 F H 08/14/17 09:33 Pulse Rate 78 08/14/17 09:33 Respiratory Rate 18 08/14/17 09:33 Blood Pressure 110/66 08/14/17 09:33 O2 Sat by Pulse Oximetry (%) 99 08/13/17 21:00 Constitutional: Yes: No Distress, Calm Eyes: Yes: Conjunctiva Clear Neck: Yes: Supple Cardiovascular: Yes: Regular Rate and Rhythm Respiratory: Yes: CTA Bilaterally Gastrointestinal: Yes: Soft Genitourinary: Yes: Ohara Present, Scrotal Edema Edema: No Neurological: Yes: Alert Psychiatric: Yes: Alert Labs: CBC, BMP 08/13/17 06:00 08/13/17 08:00 INR, PTT INR 1.19 (0.82-1.09) H 08/12/17 21:06 Problem List - Problems (1) Infected hydrocele Code(s): N43.1 - INFECTED HYDROCELE (2) Kidney stone Code(s): N20.0 - CALCULUS OF KIDNEY (3) UTI (urinary tract infection) Code(s): N39.0 - URINARY TRACT INFECTION, SITE NOT SPECIFIED (4) Urinary retention Code(s): R33.9 - RETENTION OF URINE, UNSPECIFIED Assessment/Plan abx . pain control f/u cultures urology to follow may take shower will follow .
[2017-08-14] MEDS: VANCOMYCIN 1,250 MG in DEXTROSE 5%-WATER - 250 ML IVPB SCH ×2 (13:06→21:06)
[2017-08-14] MEDS: oxyCODONE HCL 5 MG TABLET PO PRN (13:18)
[2017-08-14] MEDS: ACETAMINOPHEN 325 MG TABLET (FP) PO PRN ×2 (13:20→21:06)
[2017-08-14] MEDS: DOCUSATE SODIUM 100 MG CAPSULE (FP) PO SCH (21:05)
[2017-08-14] MEDS: HEPARIN NA (PORCINE) 5,000 UNITS/ML 1ML VIAL SQ SCH (21:06)
[2017-08-14] MEDS: ATORVASTATIN CA 20 MG TABLET (FP) PO SCH (21:06)
[2017-08-15] MEDS: oxyCODONE HCL 5 MG TABLET PO PRN ×2 (04:19→20:58)
--- NOTE | 2017-08-15 09:04 | PN ---
Progress Note (short form) - Note Progress Note: patient seen and examined Subjectively feeling better Decreased pain at bedside Afebrile Vital Signs Temp 98.5 F 08/15/17 08:00 Pulse 75 08/15/17 08:00 Resp 18 08/15/17 08:00 BP 119/60 08/15/17 08:00 Pulse Ox 99 08/14/17 21:00 Intake & Output 08/14/17 08/14/17 08/15/17 11:59 23:59 11:59 Intake Total 600 1600 500 Output Total 1700 3300 1100 Balance -1100 -1700 -600 Intake: IVPB 200 500 Oral 400 1100 500 Output: Urine 1700 3300 1100 Ohara 1700 3300 1100 Other: Voiding Method Indwelling Catheter Indwelling Catheter Indwelling Catheter Bowel Movement Yes # Bowel Movements 1 Active Medications Acetaminophen (Tylenol -) 650 mg PO Q6H PRN PRN Reason: PAIN Last Admin: 08/14/17 21:06 Dose: 650 mg Atorvastatin Calcium (Lipitor -) 20 mg PO HS [facility] Last Admin: 08/14/17 21:06 Dose: 20 mg Docusate Sodium (Colace -) 300 mg PO HS [facility] Last Admin: 08/14/17 21:05 Dose: 300 mg Heparin Sodium (Porcine) (Heparin -) 5,000 unit SQ BID HERNANDEZ Last Admin: 08/14/17 21:06 Dose: 5,000 unit Vancomycin HCl 1,250 mg/ (Dextrose) 250 mls @ 166.667 mls/hr IVPB BID HERNANDEZ PRN Reason: Protocol Last Admin: 08/14/17 21:06 Dose: 166.667 mls/hr Ketorolac Tromethamine (Toradol Injection -) 30 mg IVPUSH Q8H-IV PRN PRN Reason: PAIN LEVEL 6-10 Stop: 08/18/17 09:59 Nortriptyline HCl (Pamelor -) 50 mg PO HS PRN PRN Reason: INSOMNIA Oxycodone HCl (Roxicodone -) 5 mg PO Q4H PRN PRN Reason: PAIN LEVEL 6-10 Last Admin: 08/15/17 04:19 Dose: 5 mg Pantoprazole Sodium (Protonix -) 40 mg PO DAILY [facility] Last Admin: 08/14/17 09:35 Dose: 40 mg Sodium Chloride (Normal Saline -) 500 ml IV Q20M PRN PRN Reason: MAP<65mm Hg OR SBP <90 Last Admin: 08/13/17 05:40 Dose: 500 ml CBC, BMP 08/13/17 06:00 08/13/17 08:00 Microbiology 08/12/17 21:00 Blood Culture - Preliminary Blood - Peripheral Venous NO GROWTH OBTAINED AFTER 48 HOURS, INCUBATION TO CONTINUE FOR 3 DAYS. 08/12/17 21:00 Blood Culture - Preliminary Blood - Peripheral Venous NO GROWTH OBTAINED AFTER 48 HOURS, INCUBATION TO CONTINUE FOR 3 DAYS. 08/12/17 21:00 Urine Culture - Preliminary Urine - Urine - Catheterized Group D Strep Or Entero Coccus physical exam Constitutional: Yes: No Distress, Calm and comfortable Eyes: Yes: Conjunctiva Clear Neck: Yes: Supple Cardiovascular: Yes: Regular Rate and Rhythm Respiratory: Yes: CTA Bilaterally Gastrointestinal: Yes: Soft Genitourinary: Yes: Ohara Present, Scrotal Edema/redness Edema: No Neurological: Yes: Alert Psychiatric: Yes: Alert Assessment/Plan clinically better continue antibiotics pain control--much better urology consult pending Will follow Discussed with patient and patient's Problem List - Problems (1) Infected hydrocele Code(s): N43.1 - INFECTED HYDROCELE (2) Kidney stone Code(s): N20.0 - CALCULUS OF KIDNEY (3) UTI (urinary tract infection) Code(s): N39.0 - URINARY TRACT INFECTION, SITE NOT SPECIFIED (4) Urinary retention Code(s): R33.9 - RETENTION OF URINE, UNSPECIFIED
[2017-08-15] MEDS ORDERED: PT OWN MED DRAWER 7, Y5N ONE (10:30)
[2017-08-15] MEDS: PANTOPRAZOLE 40 MG TABLET (FP) PO SCH (10:34)
[2017-08-15] MEDS: HEPARIN NA (PORCINE) 5,000 UNITS/ML 1ML VIAL SQ SCH ×2 (10:34→21:00)
[2017-08-15] MEDS: VANCOMYCIN 1,250 MG in DEXTROSE 5%-WATER - 250 ML IVPB SCH ×2 (10:35→21:41)
--- NOTE | 2017-08-15 11:48 | PN ---
Progress Note (short form) - Note Progress Note: less scrotal pain Vital Signs Period Temp Pulse Resp BP Sys/Jean-Baptiste Pulse Ox Last 24 Hr 98.0 F-100.6 F 72-92 18-20 118-135/60-83 95-99 cor-rrr lungs clear abd soft,nt +scrotal swelling unchanged +sharpe ext no edema CBC, BMP 08/13/17 06:00 08/13/17 08:00 Microbiology 08/12/17 21:00 Blood - Peripheral Venous Blood Culture - Preliminary NO GROWTH OBTAINED AFTER 48 HOURS, INCUBATION TO CONTINUE FOR 3 DAYS. 08/12/17 21:00 Blood - Peripheral Venous Blood Culture - Preliminary NO GROWTH OBTAINED AFTER 48 HOURS, INCUBATION TO CONTINUE FOR 3 DAYS. 08/12/17 21:00 Urine - Urine - Catheterized Urine Culture - Preliminary Group D Strep Or Entero Coccus a/p infected hydrocele enterococcal uti-f/u cultures vancomycin day #2 urology consult pending Problem List - Problems (1) Infected hydrocele Code(s): N43.1 - INFECTED HYDROCELE (2) UTI (urinary tract infection) Code(s): N39.0 - URINARY TRACT INFECTION, SITE NOT SPECIFIED
[2017-08-15] MEDS ORDERED: TAMSULOSIN HCL 0.4 MG CAP.ER.24H (FP) PO ONE (17:15)
--- NOTE | 2017-08-15 18:47 | CONS ---
DATE OF CONSULTATION: DATE OF DICTATION: 08/15/2017 HISTORY OF PRESENT ILLNESS: Patient is a 62-year-old male admitted via the emergency room on August 13, 2017, with fever, chills, and left flank pain. The patient is status post vaporization of the prostate in May 2017. He also underwent cystoscopy with optical internal urethrotomy for posterior urethral stricture earlier this month. The patient does have history of dyslipidemia, high blood pressure, and nephrolithiasis. He recently developed flank pain which became more severe, associated with chills and some fever this afternoon. He had gone to [facility] with urinary retention, and a Ohara catheter was placed to a leg bag. The patient presently reports left flank pain associated with chills and fever. He is nauseous but denies vomiting or diarrhea. He denies chest pain or shortness of breath. A CAT scan of the abdomen revealed no hydronephrosis and no obstructing renal stones. There were small non-obstructing nephrocalcinoses, and there was bilateral renal cortical scarring. An ultrasound of the groin revealed a small left hydrocele. SOCIAL HISTORY: The patient denies ethanol or tobacco use. ALLERGIES: He denies any allergies. MEDICATIONS: He is on multiple medications including lisinopril, Zocor, Tenormin, Fenoglide, aspirin, Pamelor, Protonix, , Mobic, and Bactrim. PHYSICAL EXAMINATION: General: A well-developed male in no apparent distress. Abdomen: Soft. There was no CVA tenderness. There was some left flank fullness and tenderness to deep palpation. There was also left scrotal swelling with some tenderness. No hernias or hydroceles were elicited. Genitalia: Phallus is normal. Meatus is adequate. Rectal: Prostate is 2+, smooth, benign, nontender. Vital Signs: In the emergency room revealed a temperature of 99.5 and a blood pressure of 123/61. LABORATORY DATA: Electrolytes revealed a BUN of 27 and creatinine of 1.4. Random glucose was 92. Liver enzymes were normal. The patient's white count is 14.1, hemoglobin was 10.1 and hematocrit 31.4. Routine platelets were 178. Coagulation profile revealed a PT of 13.4 and INR 1.19. The urinalysis was positive for blood, negative for nitrites. A urine C&S grew out Enterococci faecalis. Blood C&S was negative for growth. Presently, the patient's T-max is 99.7, and his blood pressure is 132/75. The patient today feels less pain in the flank. The Ohara catheter is patent. The urine is clear. He was afebrile. IMPRESSION AT PRESENT: Prostatitis with possible left epididymal orchitis. To continue with present IV vancomycin. We will discontinue Ohara in a.m. and get trial at voiding. Flor [id number]
[2017-08-15] MEDS: ACETAMINOPHEN 325 MG TABLET (FP) PO PRN (21:00)
[2017-08-15] MEDS: ATORVASTATIN CA 20 MG TABLET (FP) PO SCH (21:00)
[2017-08-15] MEDS: DOCUSATE SODIUM 100 MG CAPSULE (FP) PO SCH (21:00)
--- NOTE | 2017-08-15 21:47 | EKG ---
Test Reason : Blood Pressure : / mmHG Vent. Rate : 083 BPM Atrial Rate : 083 BPM P-R Int : 148 ms QRS Dur : 088 ms QT Int : 380 ms P-R-T Axes : 052 015 054 degrees QTc Int : 446 ms NORMAL SINUS RHYTHM NORMAL ECG WHEN COMPARED WITH ECG OF 01-JUL-2013 14:11, NO SIGNIFICANT CHANGE WAS FOUND Confirmed by GUANAKITO TOWNSEND MD ([id number]) on 08/15/2017 9:46:41 PM Referred By: Confirmed By:GUANAKITO TOWNSEND MD
[2017-08-16 08:37] LABS: BASO % 0.9 % (0-2.0); EOS % 7.3 % (0-4.5); HEMATOCRIT 36.3 % (35.4-49); LYMPH % 21.8 % (8-40); MCH 26.5 pg (25.7-33.7); MCHC 33.1 g/dl (32.0-35.9); MEAN CELL VOLUME 80.1 fl (80-96); MEAN PLT VOLUME 8.9 fl (7.5-11.1); MONO % 8.5 % (3.8-10.2); NEUT % 61.5 % (42.8-82.8); PLATELET COUNT 284 K/MM3 (134-434); RBC 4.53 M/mm3 (4.00-5.60); RDW 14.7 % (11.9-15.9); WHITE BLOOD COUNT 7.2 K/mm3 (4.0-10.0)
[2017-08-16 09:03] LABS: CHLORIDE 104 mmol/L (98-107); SODIUM 138 mmol/L (136-145)
[2017-08-16 09:28] LABS: ALBUMIN 2.9 g/dl (3.4-5.0); ALK PHOS 98 U/L (45-117); ANION GAP 11 (8-16); BILIRUBIN,TOTAL 0.4 mg/dL (0.2-1.0); BLOOD UREA NITROGEN 17 mg/dL (7-18); CALCIUM 8.8 mg/dL (8.5-10.1); CO2 23 mmol/L (21-32); CREATININE 0.9 mg/dL (0.7-1.3); GLUCOSE,RANDOM 98 mg/dL (74-106); SGOT/AST 27 U/L (15-37); SGPT/ALT 53 U/L (12-78); TOT PROT 6.6 g/dl (6.4-8.2)
--- NOTE | 2017-08-16 09:31 | PN ---
Progress Note (short form) - Note Progress Note: comfortable Pain okay Afebrile Vital Signs Temp 97.5 F L 08/16/17 06:00 Pulse 63 08/16/17 06:00 Resp 20 08/15/17 22:00 BP 119/73 08/16/17 06:00 Pulse Ox 95 08/15/17 21:00 Intake & Output 08/15/17 08/15/17 08/16/17 11:59 23:59 11:59 Intake Total 500 2800 Output Total 1100 3900 1000 Balance -600 -1100 -1000 Intake: IV 500 Normal Saline@500 ml/hr 500 IVPB 500 Oral 500 1800 Output: Urine 1100 3900 1000 [place] 1100 3900 1000 Other: Voiding Method Indwelling Catheter Indwelling Catheter Bowel Movement Yes # Bowel Movements 1 Active Medications Acetaminophen (Tylenol -) 650 mg PO Q6H PRN PRN Reason: PAIN Last Admin: 08/15/17 21:00 Dose: 650 mg Atorvastatin Calcium (Lipitor -) 20 mg PO HS [facility] Last Admin: 08/15/17 21:00 Dose: 20 mg Docusate Sodium (Colace -) 300 mg PO HS [facility] Last Admin: 08/15/17 21:00 Dose: 300 mg Heparin Sodium (Porcine) (Heparin -) 5,000 unit SQ BID HERNANDEZ Last Admin: 08/15/17 21:00 Dose: 5,000 unit Vancomycin HCl 1,250 mg/ (Dextrose) 250 mls @ 166.667 mls/hr IVPB BID HERNANDEZ PRN Reason: Protocol Last Admin: 08/15/17 21:41 Dose: 166.667 mls/hr Ketorolac Tromethamine (Toradol Injection -) 30 mg IVPUSH Q8H-IV PRN PRN Reason: PAIN LEVEL 6-10 Stop: 08/18/17 09:59 Nortriptyline HCl (Pamelor -) 50 mg PO HS PRN PRN Reason: INSOMNIA Oxycodone HCl (Roxicodone -) 5 mg PO Q4H PRN PRN Reason: PAIN LEVEL 6-10 Last Admin: 08/15/17 20:58 Dose: 5 mg Pantoprazole Sodium (Protonix -) 40 mg PO DAILY [facility] Last Admin: 08/15/17 10:34 Dose: 40 mg Sodium Chloride (Normal Saline -) 500 ml IV Q20M PRN PRN Reason: MAP<65mm Hg OR SBP <90 Last Admin: 08/13/17 05:40 Dose: 500 ml CBC, BMP 08/16/17 07:00 08/16/17 07:00 Microbiology 08/12/17 21:00 Blood Culture - Preliminary Blood - Peripheral Venous NO GROWTH OBTAINED AFTER 72 HOURS, INCUBATION TO CONTINUE FOR 2 DAYS. 08/12/17 21:00 Blood Culture - Preliminary Blood - Peripheral Venous NO GROWTH OBTAINED AFTER 72 HOURS, INCUBATION TO CONTINUE FOR 2 DAYS. 08/12/17 21:00 Urine Culture - Final Urine - Urine - Catheterized Enterococcus Faecalis physical exam Constitutional: Yes: No Distress, Calm and comfortable Eyes: Yes: Conjunctiva Clear Neck: Yes: Supple Cardiovascular: Yes: Regular Rate and Rhythm Respiratory: Yes: CTA Bilaterally Gastrointestinal: Yes: Soft Genitourinary: Yes: [place] Present, Scrotal Edema/redness Edema: No Neurological: Yes: Alert Psychiatric: Yes: Alert Assessment/Plan clinically better continue antibiotics--per ID pain control--much better urology consult pending discussed with nursing staff--- patient was started on Flomax and voiding trial as per urologist Today Will follow Discussed with patient Problem List - Problems (1) Infected hydrocele Code(s): N43.1 - INFECTED HYDROCELE (2) Kidney stone Code(s): N20.0 - CALCULUS OF KIDNEY (3) UTI (urinary tract infection) Code(s): N39.0 - URINARY TRACT INFECTION, SITE NOT SPECIFIED (4) Urinary retention Code(s): R33.9 - RETENTION OF URINE, UNSPECIFIED
[2017-08-16] MEDS: VANCOMYCIN 1,250 MG in DEXTROSE 5%-WATER - 250 ML IVPB SCH (10:05)
[2017-08-16] MEDS: PANTOPRAZOLE 40 MG TABLET (FP) PO SCH (10:05)
[2017-08-16] MEDS: HEPARIN NA (PORCINE) 5,000 UNITS/ML 1ML VIAL SQ SCH ×2 (10:05→21:41)
[2017-08-16] MEDS: ACETAMINOPHEN 325 MG TABLET (FP) PO PRN (12:56)
[2017-08-16] MEDS: oxyCODONE HCL 5 MG TABLET PO PRN (12:56)
--- NOTE | 2017-08-16 14:15 | PN ---
Progress Note (short form) - Note Progress Note: less scrotal pain sharpe just removed Vital Signs Period Temp Pulse Resp BP Sys/Jean-Baptiste Pulse Ox Last 24 Hr 97.5 F-98.1 F 63-89 16-20 119-145/70-75 95 cor-rrr lungs clear abd soft,nt ext no edema less scrotal erythema and edema CBC, BMP 08/16/17 07:00 08/16/17 07:00 Microbiology 08/12/17 21:00 Blood - Peripheral Venous Blood Culture - Preliminary NO GROWTH OBTAINED AFTER 72 HOURS, INCUBATION TO CONTINUE FOR 2 DAYS. 08/12/17 21:00 Blood - Peripheral Venous Blood Culture - Preliminary NO GROWTH OBTAINED AFTER 72 HOURS, INCUBATION TO CONTINUE FOR 2 DAYS. 08/12/17 21:00 Urine - Urine - Catheterized Urine Culture - Final Enterococcus Faecalis a/p infected hydrocele enterococcal uti-amp sensitive switch to ampicillin today day #3 of 14 antibiotics could switch to po amox in am to complete 2 weeks should f/u with urology Problem List - Problems (1) Infected hydrocele Code(s): N43.1 - INFECTED HYDROCELE (2) UTI (urinary tract infection) Code(s): N39.0 - URINARY TRACT INFECTION, SITE NOT SPECIFIED
[2017-08-16] MEDS: AMPICILLIN - 2 GM in SODIUM CHLORIDE 100 ML IVPB SCH ×2 (15:15→21:40)
[2017-08-16] MEDS ORDERED: PT OWN MED DRAWER 7, Y5N ONE (21:35)
[2017-08-16] MEDS: ATORVASTATIN CA 20 MG TABLET (FP) PO SCH (21:41)
[2017-08-16] MEDS: DOCUSATE SODIUM 100 MG CAPSULE (FP) PO SCH (21:41)
[2017-08-17] MEDS: AMPICILLIN - 2 GM in SODIUM CHLORIDE 100 ML IVPB SCH ×4 (03:03→21:30)
[2017-08-17] MEDS ORDERED: PT OWN MED DRAWER 7, Y5N ONE ×2 (08:47→15:13)
[2017-08-17] MEDS: PANTOPRAZOLE 40 MG TABLET (FP) PO SCH (09:35)
[2017-08-17] MEDS: HEPARIN NA (PORCINE) 5,000 UNITS/ML 1ML VIAL SQ SCH ×2 (09:36→21:29)
--- NOTE | 2017-08-17 09:55 | DS ---
Physical Examination Vital Signs: Vital Signs Temperature 98 F 08/17/17 09:36 Pulse Rate 78 08/17/17 09:36 Respiratory Rate 18 08/17/17 09:36 Blood Pressure 128/78 08/17/17 09:36 O2 Sat by Pulse Oximetry (%) 96 08/16/17 22:00 Findings/Remarks: feels well pain ok- much better sharpe d/c ed all f/u noted afebriile walks in room Constitutional: Yes: No Distress, Calm Neck: Yes: Supple Cardiovascular: Yes: Regular Rate and Rhythm Respiratory: Yes: CTA Bilaterally Gastrointestinal: Yes: Normal Bowel Sounds, Soft Edema: Yes (scrotal - better) Neurological: Yes: Alert Psychiatric: Yes: Alert Labs: CBC, BMP 08/16/17 07:00 08/16/17 07:00 Discharge Summary Reason For Visit: CALCULUS OF KIDNEY, PYELONEPHRITIS Current Active Problems DVT prophylaxis (Acute) HLD (hyperlipidemia) (Acute) HTN (hypertension) (Acute) History of hydrocele (Acute) Inability to urinate (Acute) Infected hydrocele (Acute) Kidney stone (Acute) Pyelonephritis (Acute) UTI (urinary tract infection) (Acute) Hospital Course: This is a 62 y/o male with a past medical history of HTN, HLD, Kidney Stones. Who presents to the ED with spouse for flank pain and chills. Per ED record, patient was seen at [facility] for Urinary Retention- placed Sharpe Catheter w/leg bag. He reports following up with Dr. Rush Rojas in the office yesterday, and was given Toradol for pain. The patient reports having pain to his L-flank with chills and subjective fevers. pt treated with abx- vanco/ zosyn i/d followed u/c- enterococcal- sensitive to ampicillin pt cleared for d/c by i/d on po abx pt also much better will d/c today if ok with Dr. Rojas and passes urine meds prescribed to pharmacy. discussed with nursing staff. pt also advised to f/u with his pmd in one week. Condition: Improved - Instructions Referrals: Samantha Falcon MD [Primary Care Provider] - Disposition: HOME - Home Medications Comprehensive Discharge Medication List: Ambulatory Orders Lisinopril [Prinivil] 20 mg PO DAILY 03/25/13 Simvastatin [Zocor -] 40 mg PO HS 03/25/13 Atenolol [Tenormin -] 50 mg PO ASDIR 11/03/15 Fenofibrate [Fenoglide] 134 mg PO DAILY 11/03/15 Aspirin [ASA -] 81 mg PO DAILY 07/19/17 Nortriptyline HCl [Pamelor -] 50 mg PO HS PRN 07/19/17 Pantoprazole Sodium [Protonix] 40 mg PO DAILY 07/19/17 Meloxicam [Mobic (Nf) -] 0 mg PO ASDIR 08/12/17 Acetaminophen [Tylenol .Regular Strength -] 650 mg PO Q6H PRN tablet 08/17/17 Amoxicillin - [Amoxicillin 500mg Capsule -] 500 mg PO TID #42 capsule 08/17/17 Tamsulosin HCl [Flomax] 0.4 mg PO DAILY #30 cap.er.24h 08/17/17
--- NOTE | 2017-08-17 11:57 | PN ---
Progress Note (short form) - Note Progress Note: UROLOGY NOTE. pt. feels better, less scrotal pain ,ct. reveals heather. nephrolithiasis and microhematuria. will follow in office for w/u of nephrolithiasis
--- NOTE | 2017-08-17 13:54 | PN ---
Progress Note (short form) - Note Progress Note: UROLOGY NOTE. Pt w/ h/o recurrent retention due to urethral strictures. Attempts at placement of sharpe unsuccessful, G.U tray brought from central supply, urethra dilated without difficulty or bleeding. A 20 fr sharpe catheter was placed and 400 cc of clear urine drained. Continue sharpe, scrotal elevation , ice packs, will follow-up in office next Aug 25. Will suggest bethanacol 50 mg po tid, flomax .8 hs, and scrotal elevation at all times.
[2017-08-17] MEDS: ATORVASTATIN CA 20 MG TABLET (FP) PO SCH (21:29)
[2017-08-17] MEDS: DOCUSATE SODIUM 100 MG CAPSULE (FP) PO SCH (21:29)
[2017-08-18] MEDS: AMPICILLIN - 2 GM in SODIUM CHLORIDE 100 ML IVPB SCH ×2 (02:19→08:57)
[2017-08-18 06:04] VITALS: BP 126/70; PULSE 64; TEMP 98
[2017-08-18] MEDS ORDERED: PT OWN MED DRAWER 7, Y5N ONE (08:19)
--- NOTE | 2017-08-18 09:01 | PN ---
Progress Note (short form) - Note Progress Note: events of yesterday noted fels well uretheral stricture- dilated- sharpe placed passing urine no complains denies pain Vital Signs Temp 98.0 F 08/18/17 06:00 Pulse 64 08/18/17 06:00 Resp 20 08/18/17 06:00 BP 126/70 08/18/17 06:00 Pulse Ox 96 08/17/17 21:00 Intake & Output 08/17/17 08/17/17 08/18/17 11:59 23:59 11:59 Intake Total 200 400 400 Output Total 3100 1700 Balance 200 -2700 -1300 Intake: IVPB 200 200 200 Oral 200 200 Output: Urine 3100 1700 Sharpe 1200 1700 Void 1900 Other: Voiding Method Urinal Indwelling Catheter Indwelling Catheter # Unmeasured Voids Void 1 Bowel Movement No Active Medications Acetaminophen (Tylenol -) 650 mg PO Q6H PRN PRN Reason: PAIN Last Admin: 08/16/17 12:56 Dose: 650 mg Atorvastatin Calcium (Lipitor -) [address] [facility] Last Admin: 08/17/17 21:29 Dose: 20 mg Docusate Sodium (Colace -) [address] [facility] Last Admin: 08/17/17 21:29 Dose: 300 mg Heparin Sodium (Porcine) (Heparin -) 5,[address] [facility] Last Admin: 08/17/17 21:29 Dose: 5,000 unit Ampicillin Sodium 2 gm/ Sodium (Chloride) 100 mls @ 200 mls/hr IVPB Q6H-IV [facility] Last Admin: 08/18/17 08:57 Dose: 200 mls/hr Ketorolac Tromethamine (Toradol Injection -) 30 mg IVPUSH Q8H-IV PRN PRN Reason: PAIN LEVEL 6-10 Stop: 08/18/17 09:59 Last Admin: 08/17/17 17:56 Dose: 30 mg Nortriptyline HCl (Pamelor -) 50 mg PO HS PRN PRN Reason: INSOMNIA Pantoprazole Sodium (Protonix -) [address] [facility] Last Admin: 08/17/17 09:35 Dose: 40 mg Sodium Chloride (Normal Saline -) 500 ml IV Q20M PRN PRN Reason: MAP<65mm Hg OR SBP <90 Last Admin: 01/20/18 05:40 Dose: 500 ml Physical exam Constitutional: Yes: No Distress, Calm and comfortable Eyes: Yes: Conjunctiva Clear Neck: Yes: Supple Cardiovascular: Yes: Regular Rate and Rhythm Respiratory: Yes: CTA Bilaterally Gastrointestinal: Yes: Soft Genitourinary: Yes: Sharpe Present, Edema: No Neurological: Yes: Alert Psychiatric: Yes: Alert Assessment/Plan clinically stable bethanachol added increase flomax dose per urolgy abx d/c today f/u with urology oas out pt as directed discussed with pt/ nursing staff see detailed d/c summary as of yesterday Problem List - Problems (1) Infected hydrocele Code(s): N43.1 - INFECTED HYDROCELE (2) Kidney stone Code(s): N20.0 - CALCULUS OF KIDNEY (3) UTI (urinary tract infection) Code(s): N39.0 - URINARY TRACT INFECTION, SITE NOT SPECIFIED (4) Urinary retention Code(s): R33.9 - RETENTION OF URINE, UNSPECIFIED
[2017-08-18] MEDS: HEPARIN NA (PORCINE) 5,000 UNITS/ML 1ML VIAL SQ SCH (09:42)
[2017-08-18] MEDS: PANTOPRAZOLE 40 MG TABLET (FP) PO SCH (09:42)
== END 2017-08-18 10:20 | disposition home or self-care (01) | DRG 501 ==
LOC: JER 18:22 → J6S 08-13 02:54
PROVIDERS: ADMIT Internal Medicine; ATTEND Internal Medicine
DX: N43.1 Infected hydrocele (principal); N10 Acute pyelonephritis; N45.1 Epididymitis; R33.9 Retention of urine, unspecified; E78.5 Hyperlipidemia, unspecified; N20.0 Calculus of kidney; N40.0 Benign prostatic hyperplasia without lower urinary tract symptoms; N17.9 Acute kidney failure, unspecified; I95.9 Hypotension, unspecified
CPT/HCPCS: 36415; 71045-TC; 74176; 76870-TC; 80048; 80053; 81003; 81015; 83605; 85025; 85610; 85730; 86850; 86900; 86901; 87040; 87086; 87186; 87491; 87591; 93005; 93010; 99282-25; J1644

== ENCOUNTER 2017-09-14 18:35 | Emergency (ER) | payer OTHER ==
--- NOTE | 2017-09-14 18:46 | PDOC ---
Rapid Medical Evaluation Chief Complaint: Urinary Problem Time Seen by Provider: 09/14/17 18:44 Medical Evaluation: Allergies Allergy/AdvReac Type Severity Reaction Status Date / Time No Known Allergies Allergy Verified 08/12/17 19:01 09/14/17 18:45 I have performed a brief in-person evaluation of this patient. The patient presents with a chief complaint of:urinary retention since 4pm this afternoon. H/o BPH, urinary retention, no sharpe in place currently, renal stones , HTN, HLD : Dr Rush Rojas PMD: Dr Falcon Pertinent physical exam findings:Stable w/ unremarkable exam I have ordered the following:labs/ua The patient will proceed to the ED for further evaluation.
[2017-09-14 18:48] VITALS: BP 120/71; PULSE 63; TEMP 97.9; BMI 31.3
== END 2017-09-14 23:39 | disposition left against medical advice (07) ==
LOC: JER 18:35
DX: Z53.21 Procedure and treatment not carried out due to patient leaving prior to being seen by health care provider (principal)
CPT/HCPCS: 99281-25

== ENCOUNTER 2017-10-06 00:04 | Emergency (ER) | payer OTHER ==
[2017-10-06 00:35] VITALS: BP 126/81; PULSE 58; TEMP 98.6; BMI 31.3
--- NOTE | 2017-10-06 00:37 | PDOC ---
History of Present Illness - General History Source: Patient Exam Limitations: No Limitations - History of Present Illness Initial Comments: 10/06/17 00:47 The patient is a 62 year old female with a significant PMH of BPH, urinary retention, kidney stones, HTN, and hyperlipidemia who presents to the emergency department with urinary retention over the past 3 hours. The patient reports this is his second episode of urinary retention s/p cystoscopy about 3 weeks ago. He reports being evaluated here on 09/14 for the same complaint but left before full evaluation and plan. The patient denies fevers or chills. He denies nausea, vomiting, and diarrhea. The patient denies chest pain, shortness of breath, headache and dizziness. Denies dysuria, frequency, and hematuria. Allergies: NKA Past surgical history: Right knee orthopedic surgery. Social history: Former smoker (quit over 20 years ago). No reported alcohol or drug use. PCP: Dr. Samantha Falcon Urology: Dr. Rush Rojas <Juan A Kc - Last Filed: 10/06/17 00:46> - General History Source: Patient <Trino Vallejo - Last Filed: 10/06/17 19:35> - General Chief Complaint: Urinary Problem Stated Complaint: URINARY PROBLEM Time Seen by Provider: 10/06/17 00:19 Past History <Juan A Kc - Last Filed: 10/06/17 00:46> - Past Medical History COPD: No Disorders: Yes (difficulty urinating) HTN: Yes Hypercholesterolemia: Yes Kidney Stones: Yes - Surgical History Orthopedic Surgery: Yes (r knee) - Immunization History Immunization Up to Date: Yes - Suicide/Smoking/Psychosocial Hx Smoking Status: Yes Smoking History: Never smoked Have you smoked in the past 12 months: No Number of Cigarettes Smoked Daily: 0 If you are a former smoker, when did you quit?: 20 yrs ago Information on smoking cessation initiated: No Hx Alcohol Use: No Drug/Substance Use Hx: No Substance Use Type: None Hx Substance Use Treatment: No <Trino Vallejo - Last Filed: 10/06/17 19:35> - Past Medical History Allergies/Adverse Reactions: Allergies Allergy/AdvReac Type Severity Reaction Status Date / Time No Known Allergies Allergy Verified 10/06/17 00:25 Home Medications: Ambulatory Orders Lisinopril [Prinivil] 20 mg PO DAILY 03/25/13 Simvastatin [Zocor -] 40 mg PO HS 03/25/13 Atenolol [Tenormin -] 50 mg PO ASDIR 11/03/15 Fenofibrate [Fenoglide] 134 mg PO DAILY 11/03/15 Aspirin [ASA -] 81 mg PO DAILY 07/19/17 Nortriptyline HCl [Pamelor -] 50 mg PO HS PRN 07/19/17 Pantoprazole Sodium [Protonix] 40 mg PO DAILY 07/19/17 Meloxicam [Mobic (Nf) -] 0 mg PO ASDIR 08/12/17 Acetaminophen [Tylenol .Regular Strength -] 650 mg PO Q6H PRN tablet 08/17/17 Amoxicillin - [Amoxicillin 500mg Capsule -] 500 mg PO TID #42 capsule 08/17/17 Tamsulosin HCl [Flomax] 0.4 mg PO DAILY #30 cap.er.24h 08/17/17 Bethanechol Chloride 50 mg PO TID #90 tablet 08/18/17 Review of Systems - Review of Systems Able to Perform ROS?: Yes Comments:: 10/06/17 00:47 CONSTITUTIONAL: Absent: fever, chills, diaphoresis, generalized weakness, malaise, loss of appetite HEENT: Absent: rhinorrhea, nasal congestion, throat pain, throat swelling, difficulty swallowing, mouth swelling, ear pain, eye pain, visual Changes CARDIOVASCULAR: Absent: chest pain, syncope, palpitations, irregular heart rate, lightheadedness , peripheral edema RESPIRATORY: Absent: cough, shortness of breath, dyspnea with exertion, orthopnea, wheezing, stridor, hemoptysis GASTROINTESTINAL: Absent: abdominal pain, abdominal distension, nausea, vomiting, diarrhea, constipation, melena, hematochezia GENITOURINARY: (+) Urinary retention. Absent: dysuria, urgency, hematuria, flank pain, genital pain MUSCULOSKELETAL: Absent: myalgia, arthralgia, joint swelling SKIN: Absent: rash, itching, pallor HEMATOLOGIC/IMMUNOLOGIC: Absent: easy bleeding, easy bruising, lymphadenopathy, frequent infections ENDOCRINE: Absent: unexplained weight gain, unexplained weight loss, heat intolerance, cold intolerance NEUROLOGIC: Absent: headache, focal weakness or paresthesias, dizziness, unsteady gait, seizure, mental status changes, bladder or bowel incontinence PSYCHIATRIC: Absent: anxiety, depression, suicidal or homicidal ideation, hallucinations. <KcJuan A - Last Filed: 10/06/17 00:46> *Physical Exam - Vital Signs Last Vital Signs Temp Pulse Resp BP Pulse Ox 98.6 F 58 L 22 126/81 99 10/06/17 00:25 10/06/17 00:25 10/06/17 00:25 10/06/17 00:25 10/06/17 00:25 - Physical Exam Comments: 10/06/17 00:47 GENERAL: (+) Mild distress. Well developed, well nourished. Awake and alert. No acute distress. HEENT: Normocephalic, atraumatic. PERRLA, EOMI. No conjunctival pallor. Sclera are non- icteric. Moist mucous membranes. Oropharynx is clear. NECK: Supple. Full ROM. No JVD. Carotid pulses 2+ and symmetric, without bruits. No thyromegaly. No lymphadenopathy. CARDIOVASCULAR: Regular rate and rhythm. No murmurs, rubs, or gallops. Distal pulses are 2+ and symmetric. PULMONARY: No evidence of respiratory distress. Lungs clear to auscultation bilaterally. No wheezing, rales or rhonchi. ABDOMINAL: (+) Suprapubic tenderness. Non-distended. No rebound or guarding. No organomegaly. Normoactive bowel sounds. MUSCULOSKELETAL Normal range of motion at all joints. No bony deformities or tenderness. No CVA tenderness. EXTREMITIES: No cyanosis. No clubbing. No edema. No calf tenderness. SKIN: Warm and dry. Normal capillary refill. No rashes. No jaundice. NEUROLOGICAL: Alert, awake, appropriate. Cranial nerves 2-12 intact. No deficits to light touch and temperature in face, upper extremities and lower extremities. No motor deficits in the in face, upper extremities and lower extremities. Normoreflexic in the upper and lower extremities. Normal speech. Toes are downgoing bilaterally. Gait is normal without ataxia. PSYCHIATRIC: Cooperative. Good eye contact. Appropriate mood and affect. <KcJuan A - Last Filed: 10/06/17 00:46> - Vital Signs Last Vital Signs Temp Pulse Resp BP Pulse Ox 98.6 F 58 L 22 126/81 99 10/06/17 00:25 10/06/17 00:25 10/06/17 00:25 10/06/17 00:25 10/06/17 00:25 <Trino Vallejo - Last Filed: 10/06/17 19:35> Medical Decision Making - Medical Decision Making 10/06/17 19:34 sharpe catheter placed and drained 500cc of clear yellow urine. Dr. Vallejo: The scribe's documentation has been prepared under my direction and personally reviewed by me in its entirery. I confirm that the note above accurately reflects all work, treatment, procedures, and medical decision making performed by me. <Trino Vallejo - Last Filed: 10/06/17 19:35> *DC/Admit/Observation/Transfer - Attestations Scribe Attestion: 10/06/17 00:47 Documentation prepared by Juan A Kc, acting as medical interpreter for Trino Vallejo DO. <Juan A Kc - Last Filed: 10/06/17 00:46> - Discharge Dispostion Admit: No <Trino Vallejo - Last Filed: 10/06/17 19:35> Diagnosis at time of Disposition: Urinary retention - Discharge Dispostion Disposition: HOME Condition at time of disposition: Stable - Referrals Referrals: Samantha Falcon MD [Primary Care Provider] - Rush Rojas MD [Staff Physician] - - Patient Instructions Printed Discharge Instructions: DI for Urinary Retention in Men Additional Instructions: Please follow up with Suzie Richard as soon as possible. Print Language: AMHARIC - Post Discharge Activity
== END 2017-10-06 01:46 | disposition home or self-care (01) ==
LOC: JER 00:04
PROC: 0T9B70Z Drainage of Bladder with Drainage Device, Via Natural or Artificial Opening (ICD-10-PCS; principal; 2017-10-06)
DX: N40.1 Benign prostatic hyperplasia with lower urinary tract symptoms (principal); R33.8 Other retention of urine; I10 Essential (primary) hypertension; E78.00 Pure hypercholesterolemia, unspecified; Z87.442 Personal history of urinary calculi; Z87.891 Personal history of nicotine dependence
CPT/HCPCS: 99281-25

== ENCOUNTER 2018-08-07 02:39 | Emergency (ER) | payer OTHER ==
[2018-08-07 04:11] VITALS: BMI 29.0
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
[2018-08-07 05:17] LABS: BASO % 0.2 % (0-2.0); EOS % 1.3 % (0-4.5); HEMATOCRIT 43.4 % (35.4-49); LYMPH % 4.3 % (8-40); MCH 27.3 pg (25.7-33.7); MCHC 32.2 g/dl (32.0-35.9); MEAN CELL VOLUME 84.6 fl (80-96); MEAN PLT VOLUME 8.9 fl (7.5-11.1); MONO % 5.2 % (3.8-10.2); PLATELET COUNT 214 K/MM3 (134-434); RBC 5.13 M/mm3 (4.00-5.60); RDW 14.5 % (11.9-15.9); WHITE BLOOD COUNT 11.8 K/mm3 (4.0-10.0)
[2018-08-07 05:44] LABS: INR 1.07 (0.83-1.09); PROTHROMBIN TIME (PATIENT) 12.6 SEC (9.7-13.0)
[2018-08-07 05:57] LABS: ALBUMIN 3.8 g/dl (3.4-5.0); ALK PHOS 47 U/L (45-117); ANION GAP 7 MMOL/L (8-16); BILIRUBIN,TOTAL 0.9 mg/dL (0.2-1); BLOOD UREA NITROGEN 25 mg/dL (7-18); CALCIUM 8.9 mg/dL (8.5-10.1); CHLORIDE 104 mmol/L (98-107); CO2 26 mmol/L (21-32); CREATININE 0.9 mg/dL (0.55-1.3); GLUCOSE,RANDOM 124 mg/dL (74-106); POTASSIUM 4.4 mmol/L (3.5-5.1); SGOT/AST 25 U/L (15-37); SGPT/ALT 48 U/L (13-61); SODIUM 137 mmol/L (136-145); TOT PROT 7.1 g/dl (6.4-8.2)
[2018-08-07] MEDS ORDERED: SODIUM CHLORIDE 0.9% 500 ML INFUS.BAG IV ONE (06:02)
[2018-08-07 06:18] LABS: URINE APPEARANCE CLEAR; URINE BILIRUBIN NEGATIVE (<2.0 mg/dL); URINE COLOR YELLOW; URINE GLUCOSE (UA) NEGATIVE (NEGATIVE); URINE KETONE NEGATIVE (NEGATIVE); URINE LEUK ESTERASE NEGATIVE (NEGATIVE); URINE NITRITE NEGATIVE (NEGATIVE); URINE PROTEIN NEGATIVE (NEGATIVE); URINE UROBILINOGEN NEGATIVE mg/dL (0.2-1.0)
[2018-08-07 07:35] VITALS: TEMP 98.4
[2018-08-07] MEDS ORDERED: SODIUM CHLORIDE 1,000 ML IV ONE (08:19)
--- NOTE | 2018-08-07 08:19 | PDOC ---
*Physical Exam - Vital Signs Last Vital Signs Temp Pulse Resp BP Pulse Ox 98.4 F 64 17 118/64 98 08/07/18 07:34 08/07/18 07:34 08/07/18 07:34 08/07/18 07:34 08/07/18 07:34 ED Treatment Course - LABORATORY CBC & Chemistry Diagram: 08/07/18 04:57 08/07/18 04:57 - ADDITIONAL ORDERS Additional order review: Laboratory Results 08/07/18 08/07/18 08/07/18 05:55 04:57 04:57 PT with INR 12.60 INR 1.07 Sodium Potassium Chloride Carbon Dioxide Anion Gap BUN Creatinine Creat Clearance w eGFR Random Glucose Calcium Total Bilirubin AST ALT Alkaline Phosphatase Creatine Kinase Creatine Kinase Index CK-MB (CK-2) Troponin I B-Natriuretic Peptide Total Protein Albumin Lipase 135 Urine Color Yellow Urine Appearance Clear Urine pH 7.0 Ur Specific Carman 1.023 Urine Protein Negative Urine Glucose (UA) Negative Urine Ketones Negative Urine Blood Negative Urine Nitrite Negative Urine Bilirubin Negative Urine Urobilinogen Negative Ur Leukocyte Esterase Negative 08/07/18 08/07/18 04:57 04:57 PT with INR INR Sodium 137 Potassium 4.4 Chloride 104 Carbon Dioxide 26 Anion Gap 7 L BUN 25 H Creatinine 0.9 Creat Clearance w eGFR > 60 Random Glucose 124 H Calcium 8.9 Total Bilirubin 0.9 AST 25 ALT 48 Alkaline Phosphatase 47 Creatine Kinase 602 H Creatine Kinase Index 1.6 CK-MB (CK-2) 10.1 H Troponin I < 0.02 B-Natriuretic Peptide 16.1 Total Protein 7.1 Albumin 3.8 Lipase Urine Color Urine Appearance Urine pH Ur Specific Carman Urine Protein Urine Glucose (UA) Urine Ketones Urine Blood Urine Nitrite Urine Bilirubin Urine Urobilinogen Ur Leukocyte Esterase 08/07/18 04:57 RBC 5.13 MCV 84.6 MCHC 32.2 RDW 14.5 MPV 8.9 Neutrophils % 89.0 H D Lymphocytes % 4.3 L D Monocytes % 5.2 Eosinophils % 1.3 D Basophils % 0.2 - Medications Given in the ED: ED Medications Discontinued Medications Generic Name Dose Route Start Last Admin Trade Name Freq PRN Reason Stop Dose Admin Sodium Chloride 1,000 ml 08/07/18 06:02 08/07/18 06:11 Normal Saline - IV 08/07/18 06:03 1,000 ml ONCE ONE Administration Medical Decision Making - Medical Decision Making 08/07/18 08:15 Pt signed out to me from Dr. Wyatt. 63-year-old gentleman history of hypertension presenting with several hours of nausea vomiting and diarrhea. Pt states that he was fine on Tuesday approximately 8:30 he began to feel nauseous, probably 5 episodes of nonbilious nonbloody and non-melanotic vomiting and diarrhea. No recent sick contacts or travel. Patient denies any associated chest pain, dyspnea on exertion, shortness of breath, fever, chills. he does endorse some associated crampy abdominal pain that is since improved. The patient's had a blood work that was obtained that was reviewed the CT was noted slightly elevated. Plan was to obtain a second troponin. The patient is currently feeling improved his abdomen was reassessed and is soft and nontender. Will PO challenge the pt We'll obtain a troponin 9 AM if negative will discharge the patient follow-up with his primary care doctor. 08/07/18 10:43 The patient's repeat blood work was reviewed it is unremarkable the patient is currently asymptomatic. Denies any other nausea or vomiting he states he did have a watery bowel movement. Tolerating oral intake will discharge him with some Zofran and PMD follow-up abd soft nontender Return precautions were discussed I discussed the physical exam findings, ancillary test results and final diagnoses with the patient. I answered all of the patient's questions. The patient was satisfied with the care received and felt comfortable with the discharge plan and treatment plan. The patient will call their primary care physician within 24 hours to arrange follow-up and will return to the Emergency Department with any new, persistent or worsening symptoms. *DC/Admit/Observation/Transfer Diagnosis at time of Disposition: Elevated CPK Nausea & vomiting Qualifiers: Vomiting type: unspecified Vomiting Intractability: non-intractable Qualified Code(s): R11.2 - Nausea with vomiting, unspecified Diarrhea Qualifiers: Diarrhea type: unspecified type Qualified Code(s): R19.7 - Diarrhea, unspecified - Discharge Dispostion Disposition: HOME Condition at time of disposition: Improved Decision to Admit order: No - Prescriptions Prescriptions: Ondansetron [Zofran -] 4 mg PO TID PRN #14 tablet PRN Reason: Nausea - Referrals Referrals: Samantha Falcon MD [Primary Care Provider] - - Patient Instructions Printed Discharge Instructions: DI for Vomiting -- Adult Additional Instructions: Return to the emergency department immediately with ANY new, persistent or worsening symptoms including worsening abdominal pain, fevers, inability to tolerate oral intake, chest pain, shortness of breath or any other concerns. Stay well hydrated. You MUST call and follow up with your doctor tomorrow. Your emergency department visit is not complete without a followup with your doctor for reevaluation. Please make sure your doctor reviews the results of your emergency evaluation. - Post Discharge Activity
--- NOTE | 2018-08-07 09:49 | EKG ---
Test Reason : Blood Pressure : / mmHG Vent. Rate : 064 BPM Atrial Rate : 064 BPM P-R Int : 140 ms QRS Dur : 098 ms QT Int : 422 ms P-R-T Axes : 056 022 054 degrees QTc Int : 435 ms NORMAL SINUS RHYTHM NORMAL ECG WHEN COMPARED WITH ECG OF 12-AUG-2017 22:16, NO SIGNIFICANT CHANGE WAS FOUND Confirmed by GUANAKITO TOWNSEND MD ([id number]) on 08/07/2018 9:48:34 AM Referred By: Confirmed By:GUANAKITO TOWNSEND MD
[2018-08-07 11:38] VITALS: BP 114/76; PULSE 70
== END 2018-08-07 11:38 | disposition home or self-care (01) ==
LOC: JER 02:39
PROC: 3E0337Z Introduction of Electrolytic and Water Balance Substance into Peripheral Vein, Percutaneous Approach (ICD-10-PCS; principal; 2018-08-07)
DX: R74.8 Abnormal levels of other serum enzymes (principal); R11.2 Nausea with vomiting, unspecified; R19.7 Diarrhea, unspecified; I10 Essential (primary) hypertension; E78.00 Pure hypercholesterolemia, unspecified; R39.198 Other difficulties with micturition; Z87.442 Personal history of urinary calculi; Z87.891 Personal history of nicotine dependence
CPT/HCPCS: 36415; 71046-TC-FY; 80053; 81003; 82550; 82553; 83690; 83880; 84484; 85025; 85610; 93005; 93010; 96360; 99282-25; J7030

== ENCOUNTER 2019-08-25 02:46 | Inpatient (IN) | payer OTHER ==
[2019-08-25] MEDS ORDERED: MAG HYDROX/AL HYDROX/SIMETH 30 ML UNIT-DOSE CUP PO ONE (03:32)
[2019-08-25] MEDS ORDERED: FAMOTIDINE 20 MG/50 ML IVPB 20 MG/50 ML MG IVPB ONE ×2 (03:32→03:49)
[2019-08-25] MEDS ORDERED: ACETAMINOPHEN 1000 MG/100 ML VIAL (NON FORMULARY) IVPB ONE (03:33)
--- NOTE | 2019-08-25 03:47 | PDOC ---
History of Present Illness - General Chief Complaint: Pain, Acute Stated Complaint: ABD PAIN Time Seen by Provider: 08/25/19 03:12 History Source: Patient Exam Limitations: No Limitations - History of Present Illness Initial Comments: 08/25/19 05:39 64y M with PMH of HTN, HLD, GERD presenting to ED with complaints of abdominal discomfort and gassy feeling in the stomach after eating dinner last night at 9pm. Pt has been having these problems for many years but decided to come in tonight because the pain was more intense today. He is following up with GI and has had negative scopes. He ate a large meal and then drank seltzer water to help but it did not. states pt has been constantly burping. Pt denies n/v/d , back pain, chest pain, constipation, back pain, fevers, chills. PMD: Ezekiel PMH: see hpi PSH: none MEds:see med rec Allergies: nkda 08/25/19 05:40 Past History - Past Medical History Allergies/Adverse Reactions: Allergies Allergy/AdvReac Type Severity Reaction Status Date / Time No Known Allergies Allergy Verified 08/25/19 03:04 Home Medications: Ambulatory Orders Lisinopril [Prinivil] 20 mg PO DAILY 03/25/13 Simvastatin [Zocor -] 20 mg PO HS 03/25/13 Atenolol [Tenormin -] 50 mg PO DAILY 11/03/15 Fenofibrate [Fenoglide] 160 mg PO DAILY 11/03/15 Aspirin [ASA -] 81 mg PO DAILY 07/19/17 Pantoprazole Sodium [Protonix] 40 mg PO DAILY 07/19/17 Acetaminophen [Tylenol .Regular Strength -] 650 mg PO Q6H PRN tablet 08/17/17 Ascorbic Acid [Vitamin C] 500 mg PO DAILY 08/07/18 Metoclopramide HCl 5 mg PO ASDIR PRN 08/07/18 Ondansetron [Zofran -] 4 mg PO TID PRN #14 tablet 08/07/18 Plecanatide [Trulance] 3 mg PO DAILY 08/07/18 Polyethylene Glycol 3350 [Miralax (For Daily Use) -] 17 gm PO DAILY PRN Vitamin E 400 unit PO DAILY 08/07/18 COPD: No Disorders: Yes (difficulty urinating) HTN: Yes Hypercholesterolemia: Yes Kidney Stones: Yes - Surgical History Orthopedic Surgery: Yes (r knee) - Immunization History Immunization Up to Date: Yes - Psycho Social/Smoking Cessation Hx Smoking Status: Yes Smoking History: Never smoked Have you smoked in the past 12 months: No Number of Cigarettes Smoked Daily: 0 If you are a former smoker, when did you quit?: 20 yrs ago Information on smoking cessation initiated: No Hx Alcohol Use: No Drug/Substance Use Hx: No Substance Use Type: None Hx Substance Use Treatment: No Review of Systems - Review of Systems Constitutional: No: Symptoms Reported HEENTM: No: Symptoms Reported Respiratory: No: Symptoms reported Cardiac (ROS): No: Symptoms Reported ABD/GI: Yes: See HPI : No: Symptoms Reported Musculoskeletal: No: Symptoms Reported Integumentary: No: Symptoms Reported Neurological: No: Symptoms reported *Physical Exam - Vital Signs Last Vital Signs Temp Pulse Resp BP Pulse Ox 97.6 F 58 L 18 126/65 96 08/25/19 02:55 08/25/19 02:55 08/25/19 02:55 08/25/19 02:55 08/25/19 02:55 - Physical Exam General Appearance: Yes: Appropriately Dressed, Obese. No: Apparent Distress HEENT: positive: EOMI, MAGDA, Normal ENT Inspection Neck: positive: Trachea midline, Supple. negative: Lymphadenopathy (R), Lymphadenopathy (L) Respiratory/Chest: positive: Lungs Clear, Normal Breath Sounds. negative: Crackles, Rales, Rhonchi, Stridor, Wheezing Cardiovascular: positive: Regular Rhythm, Regular Rate, S1, S2. negative: Edema , JVD, Murmur Gastrointestinal/Abdominal: positive: Normal Bowel Sounds, Soft, Tenderness ( diffuse tenderness, greatest in epigastrum) Musculoskeletal: negative: CVA Tenderness Extremity: positive: Normal Capillary Refill Integumentary: positive: Normal Color, Dry, Warm Neurologic: positive: level vial curvature gauger II-XII NML intact, Fully Oriented, Alert, Normal Mood/ Affect, Normal Response, Motor Strength 5/5 ED Treatment Course - LABORATORY CBC & Chemistry Diagram: 08/25/19 03:34 08/25/19 03:34 - RADIOLOGY Radiology Studies Ordered: Category Date Time Status ABDOMEN & PELVIS CT WITH CONTR [CT] Stat CT Scan 08/25/19 03:32 Ordered Medical Decision Making - Medical Decision Making 08/25/19 06:44 64y M with pmh of htn, hld presenting to ED with complaints of abdominal discomfort. vitals wnl will order basic labs, lipase, trop, ekg, cxr. GI cocktail, fluids ekg: sinus bradycardia at 51bpm. normal intervals. no yoli or depressinos or signs of ischemia. pt feeling better after cocktail. labs show elevated lipase 1200, and slightly elevated AST. no obstructive pattern noted. given elevated lipase, will obtain CTAP. pt is pain controlled, is not vomiting, tolerating po. dispo pending CT scan, could potentially be dc home if he tolerates po, pain controlled. Has gi f/u. signed out to Dr. Strickland. Discharge - Discharge Information Problems reviewed: Yes Clinical Impression/Diagnosis: Pancreatitis Qualifiers: Chronicity: acute Pancreatitis type: other Acute pancreatitis complication: unspecified Qualified Code(s): K85.80 - Other acute pancreatitis without necrosis or infection Abdominal pain Qualifiers: Abdominal location: generalized Qualified Code(s): R10.84 - Generalized abdominal pain - Follow up/Referral Referrals: Samantha Falcon MD [Primary Care Provider] - Casey Sutherland MD [Staff Physician] - - Patient Discharge Instructions - Post Discharge Activity
[2019-08-25] MEDS ORDERED: MAG HYDROX/AL HYDROX/SIMETH 30 ML UNIT-DOSE CUP ONE (03:49)
[2019-08-25] MEDS ORDERED: ACETAMINOPHEN INJECTION 100 ML IVPB ONE (03:49)
--- NOTE | 2019-08-25 04:16 | PDOC ---
Attending Attestation - Resident Resident Name: Torie Castaneda - ED Attending Attestation I have performed the following: I have examined & evaluated the patient, The case was reviewed & discussed with the resident, I agree w/resident's findings & plan - HPI HPI: 08/25/19 04:37 Pt felt gassy and drank 2 bottles of seltzer water and now feels worse. Afebrile Pt has epigastric discomfort - Physicial Exam PE: 08/25/19 05:45 Pt comes with epigastric pain. Afebrile VSS. heart S1S2 RRR lungs CTA abd soft NT ND no flank pain Ext: No C/C/E - Medical Decision Making 08/25/19 04:38 CBC normal Pt afebrile CHem pending EKG sinus madhavi; rate 51. 08/25/19 05:46 LIPASE is 1200; pt will get imaging and he will be signed out to the day team. 08/25/19 06:09 Pt will be hydrated and reevaluated. Heart Score/ECG Review - ECG Intrepretation Rhythm: Regular Rhythm - [place]: Normal - P and NV Prominent R with upright T in V1 (true posterior HI): No Delta Wave(s) Present: No WPW: No - QRS Poor R Wave Progression: No Q Wave Present: No - ST and T Early Repolarization: No Non Specific ST-T Wave changes: No Flattened T Waves: No Prolonged Q-T Interval: No - ECG Impressions Normal ECG: Yes Non-specific ST Elevation: No Ischemic Changes: No Bradycardia: Yes Torsades ya Pointes: No WPW: No
[2019-08-25 04:22] LABS: BASO % 0.9 % (0-2.0); EOS % 5.2 % (0-4.5); HEMATOCRIT 38.3 % (35.4-49); HEMOGLOBIN 12.8 GM/dL (11.7-16.9); LYMPH % 27.7 % (8-40); MCHC 33.3 g/dl (32.0-35.9); MEAN CELL VOLUME 84.1 fl (80-96); MEAN PLT VOLUME 9.5 fl (7.5-11.1); NEUT % 55.2 % (42.8-82.8); PLATELET COUNT 212 K/MM3 (134-434); RBC 4.56 M/mm3 (4.00-5.60); RDW 14.3 % (11.9-15.9); WHITE BLOOD COUNT 6.3 K/mm3 (4.0-10.0)
[2019-08-25 05:38] LABS: BLOOD UREA NITROGEN 27.9 mg/dL (7-18); CHLORIDE 108 mmol/L (98-107); CREATININE 1.2 mg/dL (0.55-1.3); GLUCOSE,RANDOM 125 mg/dL (74-106); POTASSIUM 4.3 mmol/L (3.5-5.1); SODIUM 141 mmol/L (136-145)
[2019-08-25 05:39] LABS: ALBUMIN 3.6 g/dl (3.4-5.0); BILIRUBIN,TOTAL 0.4 mg/dL (0.2-1); CALCIUM 9.3 mg/dL (8.5-10.1); CO2 25 mmol/L (21-32); SGOT/AST 45 U/L (15-37); SGPT/ALT 41 U/L (13-61); TOT PROT 6.6 g/dl (6.4-8.2)
[2019-08-25] MEDS ORDERED: LACTATED RINGERS SOLUTION 1000 ML INFUS.BAG IV ONE (05:52)
[2019-08-25 06:24] LABS: ALK PHOS 49 U/L (45-117); ANION GAP 8 MMOL/L (8-16); LIPASE 1292 U/L (73-393)
--- NOTE | 2019-08-25 07:10 | PDOC ---
*Physical Exam - Vital Signs Last Vital Signs Temp Pulse Resp BP Pulse Ox 97.6 F 58 L 18 126/65 96 08/25/19 02:55 08/25/19 02:55 08/25/19 02:55 08/25/19 02:55 08/25/19 02:55 - Physical Exam 08/25/19 07:10 Received sign out from Dr. Castaneda Per Dr. Castaneda, this patient is a 64 yo M with a hx of HTN, HLD, GERD who presented to the emergency department with pain in the abdomen. On initial physical examination, the patient has pain in the epigastric region. Initial laboratory work shows a rise in lipase, consistent with pancreatitis. The patient denies use of alcohol and denies a hx of cholelithiasis. ED Treatment Course - LABORATORY CBC & Chemistry Diagram: 08/26/19 07:40 08/26/19 07:40 - ADDITIONAL ORDERS Additional order review: Laboratory Results 08/25/19 08/25/19 04:30 03:34 Sodium 141 Potassium 4.3 Chloride 108 H Carbon Dioxide 25 Anion Gap 8 BUN 27.9 H Creatinine 1.2 Est GFR (CKD-EPI)AfAm 74.66 Est GFR (CKD-EPI)NonAf 64.42 Random Glucose 125 H Lactic Acid 1.0 Calcium 9.3 Total Bilirubin 0.4 AST 45 H ALT 41 Alkaline Phosphatase 49 Troponin I < 0.02 Total Protein 6.6 Albumin 3.6 Lipase 1292 H 08/25/19 03:34 RBC 4.56 MCV 84.1 MCHC 33.3 RDW 14.3 MPV 9.5 Neutrophils % 55.2 D Lymphocytes % 27.7 D Monocytes % 11.0 H D Eosinophils % 5.2 H D Basophils % 0.9 D - Medications Given in the ED: ED Medications Discontinued Medications Generic Name Dose Route Start Last Admin Trade Name Freq PRN Reason Stop Dose Admin Acetaminophen 1,000 mg 08/25/19 03:33 08/25/19 03:56 Ofirmev Injection - IVPB 08/25/19 03:34 1,000 mg ONCE ONE Administration Al Hydroxide/Mg Hydroxide 30 ml 08/25/19 03:32 08/25/19 03:56 Mylanta Oral Suspension - PO 08/25/19 03:33 30 ml ONCE ONE Administration Famotidine/Sodium Chloride 20 mg in 50 mls @ 100 mls/hr 08/25/19 03:32 03:56 Pepcid 20 Mg Premixed Ivpb - IVPB 08/25/19 04:01 100 mls/hr ONCE ONE Administration Lactated Ringer's 1,000 ml 08/25/19 05:52 08/25/19 05:54 Lactated Ringers Solution IV 08/25/19 05:53 1,000 ml NOW ONE Administration Medical Decision Making - Medical Decision Making Laboratory Tests 08/25/19 08/25/19 08/25/19 03:34 03:34 04:30 WBC 6.3 RBC 4.56 Hgb 12.8 Hct 38.3 MCV 84.1 MCH 28.0 MCHC 33.3 RDW 14.3 Plt Count 212 MPV 9.5 Absolute Neuts (auto) 3.5 Neutrophils % 55.2 D Lymphocytes % 27.7 D Monocytes % 11.0 H D Eosinophils % 5.2 H D Basophils % 0.9 D Nucleated RBC % 0 Sodium 141 Potassium 4.3 Chloride 108 H Carbon Dioxide 25 Anion Gap 8 BUN 27.9 H Creatinine 1.2 Est GFR (CKD-EPI)AfAm 74.66 Est GFR (CKD-EPI)NonAf 64.42 Random Glucose 125 H Lactic Acid 1.0 Calcium 9.3 Total Bilirubin 0.4 AST 45 H ALT 41 Alkaline Phosphatase 49 Troponin I < 0.02 Total Protein 6.6 Albumin 3.6 Triglycerides 153 H Cholesterol 182 Total LDL Cholesterol 95 HDL Cholesterol 66 H Lipase 1292 H Patient was admitted to the hospitalist team. Lipase was found to be elevated consistent with pancreatitis. Accepted for admission by hospitalist team. Patient was placed on NPO and given a 3rd liter of fluids. Discharge - Discharge Information Problems reviewed: Yes Clinical Impression/Diagnosis: Pancreatitis Qualifiers: Chronicity: acute Pancreatitis type: other Acute pancreatitis complication: unspecified Qualified Code(s): K85.80 - Other acute pancreatitis without necrosis or infection Abdominal pain Qualifiers: Abdominal location: generalized Qualified Code(s): R10.84 - Generalized abdominal pain - Follow up/Referral - Patient Discharge Instructions - Post Discharge Activity
[2019-08-25] MEDS ORDERED: SODIUM CHLORIDE 1,000 ML IV STA (07:34)
[2019-08-25 09:05] LABS: CHOLESTEROL 182 mg/dL (50-200); HDL CHOLESTEROL 66 mg/dL (40-60); LDL CHOLESTEROL (ONLY SJRH) 95 mg/dL (5-100); TRIGLYCERIDES 153 mg/dL (0-150)
[2019-08-25 09:56] LABS: LIPASE 793 U/L (73-393)
[2019-08-25 10:44] VITALS: BMI 32.0
[2019-08-25] MEDS ORDERED: POLYETHYLENE GLYCOL 3350 119 GM BTL PO PRN (12:01)
[2019-08-25] MEDS ORDERED: MORPHINE SULFATE 2 MG/ML VIAL IVPUSH PRN (12:09)
[2019-08-25] MEDS: LACTATED RINGERS SOLUTION 1,000 ML IV SCH (12:30)
--- NOTE | 2019-08-25 13:25 | HP ---
CHIEF COMPLAINT: adbominal pain PCP: Samantha Falcon MD HISTORY OF PRESENT ILLNESS: 64y M with PMH of HTN, HLD, GERD presenting to ED with complaints of abdominal discomfort and gassy feeling in the stomach after eating. States he's had symptoms for several weeks, but it was worse yesterday. Pain is in the upper abdomen, sharp, does not radiate. No relationship to position. Worse with food. Denies nausea, vomiting, diarrhea. No fever/chills. ER course was notable for: (1) elevated lipase, AST 45 (2) CTAP pending official read. No obvious stones. Pancreas appears unremarkable. (3) Recent Travel: PAST MEDICAL HISTORY: PAST SURGICAL HISTORY: Social History: Smoking: Alcohol: Drugs: Allergies No Known Allergies Allergy (Verified 08/25/19 03:04) HOME MEDICATIONS: Home Medications Medication Instructions Recorded Lisinopril [Prinivil] 20 mg PO DAILY 03/25/13 Simvastatin [Zocor -] 20 mg PO HS 03/25/13 Atenolol [Tenormin -] 50 mg PO DAILY 11/03/15 Fenofibrate [Fenoglide] 160 mg PO DAILY 11/03/15 Pantoprazole Sodium [Protonix] 40 mg PO DAILY 07/19/17 Ascorbic Acid [Vitamin C] 500 mg PO DAILY 08/07/18 Plecanatide [Trulance] 3 mg PO DAILY 08/07/18 Polyethylene Glycol 3350 [Miralax 17 gm PO DAILY PRN 08/07/18 (For Daily Use) -] Vitamin E 400 unit PO DAILY 08/07/18 REVIEW OF SYSTEMS CONSTITUTIONAL: Absent: fever, chills, diaphoresis, generalized weakness, malaise, loss of appetite, weight change HEENT: Absent: rhinorrhea, nasal congestion, throat pain, throat swelling, difficulty swallowing, mouth swelling, ear pain, eye pain, visual changes CARDIOVASCULAR: Absent: chest pain, syncope, palpitations, irregular heart rate, lightheadedness , peripheral edema RESPIRATORY: Absent: cough, shortness of breath, dyspnea with exertion, orthopnea, wheezing, stridor, hemoptysis GASTROINTESTINAL:abdominal pain, belching Absent: abdominal distension, nausea, vomiting, diarrhea, constipation, melena , hematochezia GENITOURINARY: Absent: dysuria, frequency, urgency, hesitancy, hematuria, flank pain, genital pain MUSCULOSKELETAL: Absent: myalgia, arthralgia, joint swelling, back pain, neck pain SKIN: Absent: rash, itching, pallor HEMATOLOGIC/IMMUNOLOGIC: Absent: easy bleeding, easy bruising, lymphadenopathy, frequent infections ENDOCRINE: Absent: unexplained weight gain, unexplained weight loss, heat intolerance, cold intolerance NEUROLOGIC: Absent: headache, focal weakness or paresthesias, dizziness, unsteady gait, seizure, mental status changes, bladder or bowel incontinence PSYCHIATRIC: Absent: anxiety, depression, suicidal or homicidal ideation, hallucinations. PHYSICAL EXAMINATION Vital Signs - 24 hr 08/25/19 08/25/19 08/25/19 02:55 05:53 07:15 Temperature 97.6 F 97.6 F Pulse Rate 58 L 57 L Pulse Rate [ 52 L Left Radial] Respiratory 18 20 20 Rate Blood Pressure 126/65 138/68 Blood Pressure 128/72 [Left Arm] O2 Sat by Pulse 96 96 Oximetry (%) 08/25/19 09:28 Temperature 97.7 F Pulse Rate Pulse Rate [ 56 L Left Radial] Respiratory 20 Rate Blood Pressure Blood Pressure 132/75 [Left Arm] O2 Sat by Pulse 96 Oximetry (%) Gen: NAD, AAOx3 HEENT: NCAT, L eye congenitally malformed, moist membranes Cardio: rrr, normal s1s2, no mrg noted Pulm: cta b/l Abd: soft, TTP with guarding epigastrium, no rebound Ext: no edema Laboratory Results - last 24 hr 08/25/19 08/25/19 08/25/19 03:34 03:34 04:30 WBC 6.3 RBC 4.56 Hgb 12.8 Hct 38.3 MCV 84.1 MCH 28.0 MCHC 33.3 RDW 14.3 Plt Count 212 MPV 9.5 Absolute Neuts (auto) 3.5 Neutrophils % 55.2 D Lymphocytes % 27.7 D Monocytes % 11.0 H D Eosinophils % 5.2 H D Basophils % 0.9 D Nucleated RBC % 0 Sodium 141 Potassium 4.3 Chloride 108 H Carbon Dioxide 25 Anion Gap 8 BUN 27.9 H Creatinine 1.2 Est GFR (CKD-EPI)AfAm 74.66 Est GFR (CKD-EPI)NonAf 64.42 Random Glucose 125 H Lactic Acid 1.0 Calcium 9.3 Total Bilirubin 0.4 AST 45 H ALT 41 Alkaline Phosphatase 49 Troponin I < 0.02 Total Protein 6.6 Albumin 3.6 Triglycerides 153 H Cholesterol 182 Total LDL Cholesterol 95 HDL Cholesterol 66 H Lipase 1292 H 08/25/19 08:45 WBC RBC Hgb Hct MCV MCH MCHC RDW Plt Count MPV Absolute Neuts (auto) Neutrophils % Lymphocytes % Monocytes % Eosinophils % Basophils % Nucleated RBC % Sodium Potassium Chloride Carbon Dioxide Anion Gap BUN Creatinine Est GFR (CKD-EPI)AfAm Est GFR (CKD-EPI)NonAf Random Glucose Lactic Acid Calcium Total Bilirubin AST ALT Alkaline Phosphatase Troponin I < 0.02 Total Protein Albumin Triglycerides Cholesterol Total LDL Cholesterol HDL Cholesterol Lipase 793 H ASSESSMENT/PLAN: 64y M with PMH of HTN, HLD, GERD presenting to ED with complaints of abdominal discomfort and gassy feeling in the stomach after eating. Pancreatitis -abdominal pain related to eating and associated with elevated lipase -? etiology. Does not drink alcohol regularly, CT evidently free of stones ( pending official read), TG within normal limits -Pt appears relatively comfortable. Should follow with GI as out pt. Will consider inpt consult if status worsens. -NPO except meds -LR -morphine for pain control -monitor for symptom resolution and for hunger HLD -c/w simvastatin, fenofibrate HTN -c/w atenolol GERD -c/w protonix Constipation -c/w Plecanatide, miralax DVT ppx -hep sub q Visit type - Emergency Visit Emergency Visit: Yes ED Registration Date: 08/25/19 Care time: The patient presented to the Emergency Department on the above date and was hospitalized for further evaluation of their emergent condition. - New Patient This patient is new to me today: Yes Date on this admission: 08/25/19 - Critical Care Critical Care patient: No ATTENDING PHYSICIAN STATEMENT I saw and evaluated the patient. I reviewed the resident's note and discussed the case with the resident. I agree with the resident's findings and plan as documented. SUBJECTIVE: OBJECTIVE: ASSESSMENT AND PLAN:
[2019-08-25] MEDS: HEPARIN NA (PORCINE) 5,000 UNITS/ML 1ML VIAL SQ SCH ×2 (13:45→21:57)
--- NOTE | 2019-08-25 15:42 | EKG ---
Test Reason : Blood Pressure : / mmHG Vent. Rate : 051 BPM Atrial Rate : 051 BPM P-R Int : 154 ms QRS Dur : 094 ms QT Int : 462 ms P-R-T Axes : 048 012 062 degrees QTc Int : 425 ms SINUS BRADYCARDIA OTHERWISE NORMAL ECG WHEN COMPARED WITH ECG OF 07-AUG-2018 05:29, NO SIGNIFICANT CHANGE WAS FOUND Confirmed by MD SOTO MOYSES ([id number]) on 08/25/2019 3:42:03 PM Referred By: Confirmed By:YUSUF SOTO MD
--- NOTE | 2019-08-25 16:11 | PN ---
Teaching Attending Note Name of Resident: Diallo Lockhart ATTENDING PHYSICIAN STATEMENT I saw and evaluated the patient. I reviewed the resident's note and discussed the case with the resident. I agree with the resident's findings and plan as documented. SUBJECTIVE: Complains of some epigastric discomfort, onset yesterday. Denies nausea/vomiting/diarrhea/melena/hematochezia/fever/chills. Denies regular alcohol use (last drink December 2018). OBJECTIVE: Afebrile, Hemodynamically stable. Last Vital Signs Temp Pulse Resp BP Pulse Ox 97.7 F 54 L 20 119/64 96 08/25/19 14:10 08/25/19 14:10 08/25/19 14:10 08/25/19 14:10 08/25/19 09:28 HEENT- Atraumatic, Normocephalic. Heart - S2, S2, RRR Lungs - clear to auscultation Abdomen - soft, epigastric tenderness. Bowel Sounds normal. Extremities - no edema, no calf tenderness. Neuro - AAO x 3. Tone/Power normal all extremities. Laboratory Results - last 24 hr 08/25/19 08/25/19 08/25/19 03:34 03:34 04:30 WBC 6.3 RBC 4.56 Hgb 12.8 Hct 38.3 MCV 84.1 MCH 28.0 MCHC 33.3 RDW 14.3 Plt Count 212 MPV 9.5 Absolute Neuts (auto) 3.5 Neutrophils % 55.2 D Lymphocytes % 27.7 D Monocytes % 11.0 H D Eosinophils % 5.2 H D Basophils % 0.9 D Nucleated RBC % 0 Sodium 141 Potassium 4.3 Chloride 108 H Carbon Dioxide 25 Anion Gap 8 BUN 27.9 H Creatinine 1.2 Est GFR (CKD-EPI)AfAm 74.66 Est GFR (CKD-EPI)NonAf 64.42 Random Glucose 125 H Lactic Acid 1.0 Calcium 9.3 Total Bilirubin 0.4 AST 45 H ALT 41 Alkaline Phosphatase 49 Troponin I < 0.02 Total Protein 6.6 Albumin 3.6 Triglycerides 153 H Cholesterol 182 Total LDL Cholesterol 95 HDL Cholesterol 66 H Lipase 1292 H 08/25/19 08:45 WBC RBC Hgb Hct MCV MCH MCHC RDW Plt Count MPV Absolute Neuts (auto) Neutrophils % Lymphocytes % Monocytes % Eosinophils % Basophils % Nucleated RBC % Sodium Potassium Chloride Carbon Dioxide Anion Gap BUN Creatinine Est GFR (CKD-EPI)AfAm Est GFR (CKD-EPI)NonAf Random Glucose Lactic Acid Calcium Total Bilirubin AST ALT Alkaline Phosphatase Troponin I < 0.02 Total Protein Albumin Triglycerides Cholesterol Total LDL Cholesterol HDL Cholesterol Lipase 793 H Current Medications Generic Name Dose Route Start Last Admin Trade Name Freq PRN Reason Stop Dose Admin Ascorbic Acid 500 mg 08/26/19 10:00 Vitamin C - PO DAILY [facility] Atenolol 50 mg 08/26/19 10:00 Tenormin - PO DAILY [facility] Atorvastatin Calcium 10 mg 08/25/19 22:00 Lipitor - PO HS [facility] Fenofibric Acid 135 mg 08/26/19 10:00 Trilipix - PO DAILY [facility] Heparin Sodium (Porcine) 5,000 unit 08/25/19 14:00 08/25/19 13:45 Heparin - SQ 5,000 unit TID [facility] Administration Lactated Ringer's 1,000 mls @ 100 mls/hr 08/25/19 12:00 08/25/19 12:30 Lactated Ringers Solution IV 100 mls/hr ASDIR [facility] Administration Lisinopril 20 mg 08/26/19 10:00 Prinivil PO DAILY [facility] Morphine Sulfate 2 mg 08/25/19 12:09 Morphine Sulfate IVPUSH Q6H PRN PAIN LEVEL 6-10 Non-Formulary Medication 3 mg 08/26/19 10:00 Plecanatide [Trulance] PO DAILY [facility] Pantoprazole Sodium 40 mg 08/26/19 10:00 Protonix Iv IVPUSH DAILY [facility] Polyethylene Glycol 17 gm 08/25/19 12:01 Miralax (For Daily Use) - PO DAILY PRN CONSTIPATION Vitamin E 400 unit 08/26/19 10:00 Vitamin E - PO DAILY [facility] Home Medications Medication Instructions Recorded Lisinopril [Prinivil] 20 mg PO DAILY 03/25/13 Simvastatin [Zocor -] 20 mg PO HS 03/25/13 Atenolol [Tenormin -] 50 mg PO DAILY 11/03/15 Fenofibrate [Fenoglide] 160 mg PO DAILY 11/03/15 Pantoprazole Sodium [Protonix] 40 mg PO DAILY 07/19/17 Ascorbic Acid [Vitamin C] 500 mg PO DAILY 08/07/18 Plecanatide [Trulance] 3 mg PO DAILY 08/07/18 Polyethylene Glycol 3350 [Miralax 17 gm PO DAILY PRN 08/07/18 (For Daily Use) -] Vitamin E 400 unit PO DAILY 08/07/18 ASSESSMENT AND PLAN: 64 year old male with PMH of HTN, HLD, GERD, presented to ED with complaints of abdominal discomfort and bloating. No nausea/vomiting. no fever/chills. 1. Acute Pancreatitis versus PUD/Gastritis Elevated Lipase 1292 NPO/IV Fluids/IV PPI/IV analgesia Hemodynamically Stable. Will monitor. 2. HTN - continue Atenolol, Lisinopril 3. HLD - TG 153, continue Statin, Fibrate 4. GERD - IV PPI 5. Chronic Constipation Continue Plecanatide, Miralax 6. Pulmonary Nodule, 5mm, RML, incidental finding on CT - for Pulm follow up as out-patient. 7. Bilateral Renal Cysts, Hepatic Cyst on CT, incidental finding - for follow up. DVT Px - Heparin SQ GI Px - PPI
[2019-08-25] MEDS ORDERED: ATORVASTATIN CA 10 MG TABLET (FP) PO SCH (22:00)
[2019-08-25] MEDS ORDERED: ACETAMINOPHEN 325 MG TABLET (FP) PO PRN (23:55)
[2019-08-25] MEDS ORDERED: TETRAHYDROZOLINE HCL EYE DROPS OU PRN (23:56)
[2019-08-26] MEDS: HEPARIN NA (PORCINE) 5,000 UNITS/ML 1ML VIAL SQ SCH ×2 (06:32→14:49)
[2019-08-26 08:28] LABS: HEMATOCRIT 37.9 % (35.4-49); HEMOGLOBIN 12.8 GM/dL (11.7-16.9); MCH 28.2 pg (25.7-33.7); MCHC 33.8 g/dl (32.0-35.9); MEAN CELL VOLUME 83.4 fl (80-96); MEAN PLT VOLUME 9.3 fl (7.5-11.1); PLATELET COUNT 208 K/MM3 (134-434); RBC 4.54 M/mm3 (4.00-5.60); RDW 14.4 % (11.9-15.9); WHITE BLOOD COUNT 4.4 K/mm3 (4.0-10.0)
[2019-08-26 08:49] LABS: BLOOD UREA NITROGEN 16.8 mg/dL (7-18); CALCIUM 8.8 mg/dL (8.5-10.1); CREATININE 0.9 mg/dL (0.55-1.3)
[2019-08-26] MEDS: LACTATED RINGERS SOLUTION 1,000 ML IV SCH ×2 (09:05→12:00)
[2019-08-26] MEDS ORDERED: PT OWN MED DRAWER 7, Y5N ONE (09:08)
[2019-08-26] MEDS ORDERED: ASCORBIC ACID 500 MG TABLET (FP) PO SCH (10:00)
[2019-08-26] MEDS ORDERED: FENOFIBRIC ACID 135 MG CAP PO SCH (10:00)
[2019-08-26] MEDS ORDERED: LISINOPRIL 20 MG TABLET (FP) PO SCH (10:00)
[2019-08-26] MEDS ORDERED: ATENOLOL 50 MG TABLET (FP) PO SCH (10:00)
[2019-08-26] MEDS ORDERED: VITAMIN E 400 INTERNATIONAL-UNITS CAPSULE (FP) PO SCH (10:00)
[2019-08-26] MEDS ORDERED: PANTOPRAZOLE SODIUM 40 MG VIAL IVPUSH SCH (10:00)
[2019-08-26] MEDS ORDERED: PLECANATIDE 3 MG PO SCH (10:00)
[2019-08-26 15:00] VITALS: BP 104/50; PULSE 85; TEMP 97.3
--- NOTE | 2019-08-26 15:28 | DS ---
Physical Exam: SUBJECTIVE: Epigastric discomfort resolved. Denies nausea/vomiting/diarrhea/ melena/hematochezia/fever/chills. Denies regular alcohol use (last drink December 2018). OBJECTIVE: Afebrile, Hemodynamically stable. Tolerating oral intake. Last Vital Signs Temp Pulse Resp BP Pulse Ox 97.7 F 54 L 20 119/64 96 08/25/19 14:10 08/25/19 14:10 08/25/19 14:10 08/25/19 14:10 08/25/19 09:28 HEENT- Atraumatic, Normocephalic. Heart - S2, S2, RRR Lungs - clear to auscultation Abdomen - soft, epigastric tenderness resolved. Bowel Sounds normal. Extremities - no edema, no calf tenderness. Neuro - AAO x 3. Tone/Power normal all extremities. Laboratory Results - last 24 hr 08/26/19 08/26/19 07:40 07:40 WBC 4.4 RBC 4.54 Hgb 12.8 Hct 37.9 MCV 83.4 MCH 28.2 MCHC 33.8 RDW 14.4 Plt Count 208 MPV 9.3 Sodium 139 Potassium 4.0 Chloride 108 H Carbon Dioxide 24 Anion Gap 7 L BUN 16.8 Creatinine 0.9 Est GFR (CKD-EPI)AfAm 105.72 Est GFR (CKD-EPI)NonAf 91.22 Random Glucose 81 Calcium 8.8 Discharge Medications Medication Instructions Recorded Lisinopril [Prinivil] 20 mg PO DAILY 03/25/13 Simvastatin [Zocor -] 20 mg PO HS 03/25/13 Atenolol [Tenormin -] 50 mg PO DAILY 11/03/15 Fenofibrate [Fenoglide] 160 mg PO DAILY 11/03/15 Ascorbic Acid [Vitamin C] 500 mg PO DAILY 08/07/18 Plecanatide [Trulance] 3 mg PO DAILY 08/07/18 Polyethylene Glycol 3350 [Miralax 17 gm PO DAILY PRN 08/07/18 119 gm Btl -] Vitamin E 400 unit PO DAILY 08/07/18 Pantoprazole Sodium [Protonix] 40 mg PO DAILY #30 tablet. 08/26/19 Date of Admission:08/25/19 Date of Discharge: 08/26/19 Minutes to complete discharge: 45 Discharge Summary Problems reviewed: Yes Reason For Visit: PANCREATITIS/ABDOMINAL PAIN Current Active Problems Abdominal pain (Acute) Gastritis (Acute) Pancreatitis (Acute) Hospital Course: 64 year old male with PMH of HTN, HLD, GERD, presented to ED with complaints of severe abdominal discomfort and bloating necessitating admission for further work-up and IV Analgesia. No nausea/vomiting. no fever/chills. 1. Acute Pancreatitis versus PUD/Gastritis Elevated Lipase 1292, now improved to 793 Responded to IV fluids and PPI. Now tolerating oral intake. Hemodynamically Stable. Medically optimized for discharge. GI follow up as out-patient for further eval of possible Gastritis/PUD versus Pancreatitis. 2. HTN - continue Atenolol, Lisinopril 3. HLD - TG 153, continue Statin, Fibrate 4. GERD - on PPI 5. Chronic Constipation Continue Plecanatide, Miralax 6. Pulmonary Nodule, 5mm, RML, incidental finding on CT - for Pulm follow up as out-patient. 7. Bilateral Renal Cysts, Hepatic Cyst on CT, incidental finding - for follow up. Condition: Improved - Instructions Diet, Activity, Other Instructions: You were admitted with abdominal pain suspicious for acute gastritis. You were re-started on Protonix to modulate stomach acid so as to prevent further episodes. Please follow up with Gastroenterology (Dr. Andrea) as an out- patient for further investigation. Incidental findings on CT include: 1. Pulmonary Nodule, 5mm, RML, incidental finding on CT - for Pulm follow up as out-patient. 2. Bilateral Renal Cysts, Hepatic Cyst on CT, incidental finding - for Urology and GI follow ups on discharge. Referrals: Luis Alberto Andrea MD [Staff Physician] - 1 Week (GERd, possible PUD) Samantha Falcon MD [Primary Care Provider] - Pedro Yeager MD [Staff Physician] - 2 Weeks (follow up for pulmonary nodule) Renny Desouza MD [Staff Physician] - 1 Month (follow up of renal cysts. ) Disposition: HOME - Home Medications Comprehensive Discharge Medication List: Ambulatory Orders Lisinopril [Prinivil] 20 mg PO DAILY 03/25/13 Simvastatin [Zocor -] 20 mg PO HS 03/25/13 Atenolol [Tenormin -] 50 mg PO DAILY 11/03/15 Fenofibrate [Fenoglide] 160 mg PO DAILY 11/03/15 Ascorbic Acid [Vitamin C] 500 mg PO DAILY 08/07/18 Plecanatide [Trulance] 3 mg PO DAILY 08/07/18 Polyethylene Glycol 3350 [Miralax 119 gm Btl -] 17 gm PO DAILY PRN 08/07/18 Vitamin E 400 unit PO DAILY 08/07/18 Pantoprazole Sodium [Protonix] 40 mg PO DAILY #30 tablet. 08/26/19 This patient is new to me today: No Emergency Visit: Yes ED Registration Date: 08/25/19 Care time: The patient presented to the Emergency Department on the above date and was hospitalized for further evaluation of their emergent condition. Critical Care patient: No - Discharge Referral Referred to [facility] Med [facility] No
== END 2019-08-26 16:04 | disposition home or self-care (01) | DRG 282 ==
LOC: JER 02:46 → JERBED 05:53 → J8W 10:15
DX: K85.90 Acute pancreatitis without necrosis or infection, unspecified (principal); R10.84 Generalized abdominal pain; I10 Essential (primary) hypertension; E78.5 Hyperlipidemia, unspecified; K21.9 Gastro-esophageal reflux disease without esophagitis; K59.09 Other constipation; R91.1 Solitary pulmonary nodule; N28.1 Cyst of kidney, acquired
CPT/HCPCS: 36415; 71045-TC-FY; 71046-TC-FY; 74177-TC; 80048; 80053; 80061; 83605; 83690; 83721; 84484; 85025; 85027; 93005; 93010; 94660; 99283-25; J0131; J1644; J7030; Q9967

== ENCOUNTER 2020-10-08 14:45 | Emergency (ER) | payer OTHER ==
[2020-10-08] MEDS ORDERED: ACETAMINOPHEN 500 MG TABLET (FP) PO ONE (14:54)
[2020-10-08 15:01] VITALS: BP 143/70; PULSE 72; TEMP 100.6; BMI 32.1
[2020-10-08] MEDS ORDERED: ACETAMINOPHEN 500 MG TABLET (FP) ONE (15:03)
== END 2020-10-08 16:15 | disposition home or self-care (01) ==
LOC: FER 14:45
DX: U07.1 COVID-19 (principal); R50.9 Fever, unspecified; R05 Cough
CPT/HCPCS: 71045-TC-FY; 99284-25; C9803; U0003

== ENCOUNTER 2020-10-09 11:56 | Emergency (ER) | payer OTHER ==
[2020-10-09 12:05] VITALS: BP 136/94; PULSE 71; TEMP 98.7; BMI 32.8
[2020-10-09] MEDS ORDERED: BAMLANIVIMAB 700 MG, ETESEVIMAB 1,400 MG in SODIUM CHLORIDE 250 ML IVPB ONE (12:49)
[2020-10-09 13:18] LABS: BASO % 0.4 % (0-2.0); EOS % 1.2 % (0-4.5); HEMOGLOBIN 12.9 GM/dL (11.7-16.9); LYMPH % 26.2 % (8-40); MCH 27.7 pg (25.7-33.7); MEAN CELL VOLUME 83.9 fl (80-96); MEAN PLT VOLUME 10.1 fl (7.5-11.1); MONO % 13.6 % (3.8-10.2); NEUT % 58.6 % (42.8-82.8); PLATELET COUNT 140 K/MM3 (134-434); RBC 4.65 M/mm3 (4.00-5.60); RDW 14.8 % (11.9-15.9); WHITE BLOOD COUNT 2.5 K/mm3 (4.0-10.0)
[2020-10-09 13:41] LABS: POTASSIUM 4.4 mmol/L (3.5-5.1)
[2020-10-09 13:42] LABS: CALCIUM 8.9 mg/dL (8.5-10.1)
[2020-10-09 13:43] LABS: BLOOD UREA NITROGEN 19.8 mg/dL (7-18)
[2020-10-09 13:46] LABS: CREATININE 1.1 mg/dL (0.55-1.3)
== END 2020-10-09 13:10 | disposition home or self-care (01) ==
LOC: JER 11:56
DX: U07.1 COVID-19 (principal)
CPT/HCPCS: 36415; 80048; 85025; 99284-25

== ENCOUNTER 2022-06-11 08:15 | Emergency (ER) | payer OTHER ==
[2022-06-11 08:24] VITALS: BMI 29.7
[2022-06-11] MEDS ORDERED: ACETAMINOPHEN 500 MG TABLET (FP) PO ONE (09:20)
[2022-06-11] MEDS ORDERED: ACETAMINOPHEN 500 MG TABLET (FP) ONE (09:35)
[2022-06-11 11:08] VITALS: BP 118/71; PULSE 106; RESP 20; TEMP 99.7
== END 2022-06-11 11:18 | disposition home or self-care (01) ==
LOC: JER 08:15
DX: R53.1 Weakness (principal)
CPT/HCPCS: 0241U-QW; 99283-25

== ENCOUNTER 2023-01-15 11:52 | Emergency (ER) | payer OTHER ==
[2023-01-15 12:03] VITALS: BP 128/50; PULSE 93; RESP 16; TEMP 97.8; BMI 32.1
== END 2023-01-15 14:25 | disposition left against medical advice (07) ==
LOC: JER 11:52
DX: R19.7 Diarrhea, unspecified (principal); L53.9 Erythematous condition, unspecified
CPT/HCPCS: 99281-25

== ENCOUNTER 2023-10-12 23:01 | Emergency (ER) | payer OTHER ==
[2023-10-12 23:08] VITALS: BP 153/88; PULSE 100; RESP 16; TEMP 97.7; BMI 29.7
[2023-10-12] MEDS ORDERED: ONDANSETRON 4 MG/2 ML VIAL ONE (23:56)
[2023-10-12] MEDS ORDERED: ACETAMINOPHEN INJECTION 100 ML IVPB ONE (23:56)
[2023-10-13] MEDS: ONDANSETRON 4 MG/2 ML VIAL IVPUSH ONE (00:23)
[2023-10-13] MEDS: LACTATED RINGERS SOLUTION 1000 ML INFUS.BAG IV ONE (00:23)
[2023-10-13] MEDS: ACETAMINOPHEN 1000 MG/100 ML BAG IVPB ONE (00:23)
[2023-10-13 00:27] LABS: BASO % 0.3 % (0-2.0); EOS % 2.7 % (0-4.5); HEMOGLOBIN 15.6 GM/dL (11.7-16.9); LYMPH % 5.6 % (8-40); MCH 28.2 pg (25.7-33.7); MCHC 33.9 g/dl (32.0-35.9); MEAN PLT VOLUME 8.8 fl (7.5-11.1); MONO % 5.1 % (3.8-10.2); NEUT % 86.3 % (42.8-82.8); PLATELET COUNT 246 10^3/uL (134-434); RBC 5.55 M/mm3 (4.00-5.60); RDW 15.2 % (11.9-15.9); WHITE BLOOD COUNT 10.9 K/mm3 (4.0-10.0)
[2023-10-13 00:53] LABS: POTASSIUM 3.9 mmol/L (3.5-5.1)
[2023-10-13 00:55] LABS: CALCIUM 9.3 mg/dL (8.5-10.1)
[2023-10-13 00:56] LABS: BLOOD UREA NITROGEN 25.8 mg/dL (7-18); MAGNESIUM 2.1 mg/dL (1.8-2.4)
[2023-10-13 00:59] LABS: CREATININE 1.1 mg/dL (0.55-1.3)
[2023-10-13 01:00] LABS: BILIRUBIN,TOTAL 0.7 mg/dL (0.2-1); TOT PROT 7.7 g/dl (6.4-8.2)
== END 2023-10-13 04:02 | disposition home or self-care (01) ==
LOC: JER 23:01
PROC: 3E033NZ Introduction of Analgesics, Hypnotics, Sedatives into Peripheral Vein, Percutaneous Approach (ICD-10-PCS; principal; 2023-10-12)
PROC: 3E033GC Introduction of Other Therapeutic Substance into Peripheral Vein, Percutaneous Approach (ICD-10-PCS; 2023-10-12)
DX: R10.13 Epigastric pain (principal); R11.2 Nausea with vomiting, unspecified; R19.7 Diarrhea, unspecified; K76.89 Other specified diseases of liver; Z20.822 Contact with and (suspected) exposure to COVID-19
CPT/HCPCS: 0241U-QW; 36415; 74177-TC; 80053; 83690; 83735; 84484; 85025; 93005; 93010; 99285-25; J0131

== ENCOUNTER 2024-09-18 06:54 | Day surgery (SDC) | payer OTHER ==
[2024-09-18 06:50] VITALS: BMI 33.3
[2024-09-18 08:22] VITALS: TEMP 98
[2024-09-18 08:52] VITALS: BP 109/56; PULSE 61; RESP 14
== END 2024-09-18 09:08 | disposition home or self-care (01) ==
LOC: JASU-ENDO 06:54
PROVIDERS: ATTEND Internal Medicine Gastroenterology
PROC: 0DB78ZX Excision of Stomach, Pylorus, Via Natural or Artificial Opening Endoscopic, Diagnostic (ICD-10-PCS; 2024-09-18)
PROC: 0DB68ZX Excision of Stomach, Via Natural or Artificial Opening Endoscopic, Diagnostic (ICD-10-PCS; 2024-09-18)
PROC: 0DB98ZX Excision of Duodenum, Via Natural or Artificial Opening Endoscopic, Diagnostic (ICD-10-PCS; principal; 2024-09-18 08:00)
DX: K29.50 Unspecified chronic gastritis without bleeding (principal)
CPT/HCPCS: 88305-TC; 88342-TC